=== PATIENT | male | born 1945 | race Caucasian/White ===

== ENCOUNTER 2018-01-01 13:59 | Emergency (ER) | payer MEDICARE, BC ==
[~2018-01-01] VITALS: Ht 170.2 cm; Wt 77.1 kg
[~2018-01-01 13:59] MED LIST: AEROSPAN8.9 GM; ALBUTEROL2.5 MG/31 INH; ASA81BEC PO; CLONAZEPAM 0.50.5 M1 PO; CLONAZEPAM 1 MG1 M1; CLONAZEPAM 1 MG1 M1 PO; CODEINE 10 MG-473 ML PO; COMBIVENT INH; COREG6.25 MG PO; COZAAR 50 MG TA50 M2 PO; FLONASE 0.05%50 MCG NASAL; HYDROCODONE-AP1 EAC6 PO; KLONOPIN; LASIX 40 MG TAB40 M2 PO; LEVAQUIN 750 M750 MG PO; NASALIDE; PAMELOR25 MG PO; PERFOROMIS20 MCG/2 M INH; PREDNISONE 10 M10 MG PO; PREDNISONE 20 M20 MG PO; PROVENTIL HFA6.7 G1 INH; PULMICORT FLE180 MCG; PULMICORT0.25 MG/3 INH; VIAGRA
[2018-01-01 14:26] LABS: ABSOLUTE BASOPHILS 0.1 thou/uL (0.0-0.2); ABSOLUTE EOSINOPHILS 0.5 thou/uL (0.0-0.7); ABSOLUTE LYMPHOCYTES 1.1 thou/uL (0.8-5.3); ABSOLUTE NEUTROPHILS 5.5 thou/uL (1.6-8.1); BASOPHILS 0.9 %; EOSINOPHILS 6.4 %; HEMATOCRIT 44.8 % (42.0-52.0); HEMOGLOBIN 14.7 gm/dL (14.0-18.0); LYMPHOCYTES 13.3 %; MCH 29.6 pg (26.0-34.0); MCHC 32.8 g/dL (28.0-37.0); MCV 90.2 fL (80.0-100.0); MONOCYTES 11.9 %; MPV 9.4 fl. (7.2-11.1); NUCLEATED RBCS 0 /100WBC; PLATELET COUNT* 201 thou/uL (150-400); POLYS 67.5 %; RBC 4.97 mil/uL (4.50-6.00); RDW-CV 15.2 % (10.5-14.5); WBC 8.2 thou/uL (4.0-11.0)
[2018-01-01 14:33] LABS: ANION GAP 7 mmol/L (7-16); BUN 18 mg/dL (7-18); CALCIUM 8.7 mg/dL (8.5-10.1); CHLORIDE 105 mmol/L (98-107); CO2 29 mmol/L (21-32); CREATININE 1.5 mg/dL (0.6-1.3); GLUCOSE 123 mg/dL (70-99); POTASSIUM 3.9 mmol/L (3.5-5.1); SODIUM 141 mmol/L (136-145)
[2018-01-01 14:35] LABS: APTT 23.4 Seconds (25.0-31.3)
[2018-01-01 14:44] LABS: ALBUMIN 3.4 g/dL (3.4-5.0); ALKALINE PHOSPHATASE 110 U/L (46-116); NT-PRO BRAIN NAT PEPTIDE 65 pg/mL (<300); SGOT 17 U/L (15-37); SGPT 14 U/L (30-65); TOTAL BILIRUBIN 0.3 mg/dL (<0.1-1.0); TOTAL PROTEIN 7.1 g/dL (6.4-8.2); TROPONIN-I LEVEL <0.06 ng/mL (<0.06)
[2018-01-01 14:54] LABS: URINE BILIRUBIN NEGATIVE (Negative); URINE BLOOD NEGATIVE (Negative); URINE CLARITY SL CLOUDY; URINE COLOR YELLOW; URINE GLUCOSE-RANDOM NEGATIVE (Negative); URINE KETONES NEGATIVE (Negative); URINE LEUKOCYTES-REFLEX NEGATIVE (Negative); URINE NITRITE-REFLEX NEGATIVE (Negative); URINE PROTEIN TRACE (Negative); URINE SPECIFIC GRAVITY 1.025 (1.005-1.030); URINE UROBILINOGEN 0.2 E.U./dl (0.2-1.0)
[2018-01-01 15:10] LABS: HYALINE CASTS 4-10 Moderate /LPF (None Seen)
[2018-01-01 15:11] LABS: CALCIUM OXALATE 0-3 Few /LPF (None Seen); MUCUS 4-6 Moderate strn/LPF (None Seen); SQUAMOUS >10 Many /LPF (0-3)
[2018-01-01 15:12] LABS: BACTERIA-REFLEX >30 Many /HPF (None Seen); URINE RBC 0-2 Rare /HPF (0-2); URINE WBC-REFLEX 0-5 Rare /HPF (0-5)
[2018-01-01 15:13] LABS: CRYSTALS None Seen /LPF (None Seen)
[2018-01-01 15:30] VITALS: BP 132/63
--- NOTE | 2018-01-02 10:59 | EKG ---
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: Ambrocio GREENFIELD : 1945 Requested By: Mateo Davidson Order Number: [id number] MD: Yann Galindo Measurements Intervals [place] Rate: 79 P: 85 [place]: 158 QRS: 54 QRSD: 121 T: 62 QT: 396 QTc: 455 Interpretive Statements Sinus rhythm Nonspecific intraventricular conduction delay Compared to ECG 05/02/2017 22:27:36 Sinus tachycardia no longer present Electronically Signed On 01-02-2018 10:59:10 DAT INSTRUCTOR by Yann Galindo [email or web address] <ELECTRONICALLY SIGNED> By: Yann Galindo MD, [facility] 01/02/18 1059 1404 1404 Yann Galindo MD, FACC /EPI
== END 2018-01-01 15:53 | disposition home or self-care (01) ==
LOC: M.ERS 13:59
PROVIDERS: Family Medicine
DX: S40.012A Contusion of left shoulder, initial encounter (principal); S80.02XA Contusion of left knee, initial encounter; S50.02XA Contusion of left elbow, initial encounter; J44.9 Chronic obstructive pulmonary disease, unspecified; I50.9 Heart failure, unspecified; Z85.46 Personal history of malignant neoplasm of prostate; Z88.1 Allergy status to other antibiotic agents; Z88.0 Allergy status to penicillin; Z88.8 Allergy status to other drugs, medicaments and biological substances; W19.XXXA Unspecified fall, initial encounter; Y93.89 Activity, other specified; Y92.89 Other specified places as the place of occurrence of the external cause; Y99.8 Other external cause status

== ENCOUNTER 2018-03-29 09:18 | Inpatient (IN) | payer MEDICARE, BC ==
[~2018-03-29] VITALS: Ht 172.7 cm; Wt 81.2 kg
[2018-03-29] VITALS (7 sets, daily range): BP systolic 91–116; BP diastolic 39–50
[2018-03-29] MEDS ORDERED: UNICOMPLEX M TA1 TA1 PO (09:33)
[2018-03-29 10:00] LABS: ABSOLUTE BASOPHILS 0.1 thou/uL (0.0-0.2); ABSOLUTE EOSINOPHILS 0.4 thou/uL (0.0-0.7); ABSOLUTE LYMPHOCYTES 1.6 thou/uL (0.8-5.3); ABSOLUTE MONOCYTES 0.9 thou/uL (0.0-1.2); ABSOLUTE NEUTROPHILS 5.4 thou/uL (1.6-8.1); BASOPHILS 0.8 %; EOSINOPHILS 5.2 %; HEMATOCRIT 43.3 % (42.0-52.0); HEMOGLOBIN 14.4 gm/dL (14.0-18.0); LYMPHOCYTES 18.7 %; MCH 29.4 pg (26.0-34.0); MCHC 33.4 g/dL (28.0-37.0); MCV 87.9 fL (80.0-100.0); MONOCYTES 10.9 %; MPV 9.5 fl. (7.2-11.1); NUCLEATED RBCS 0 /100WBC; PLATELET COUNT* 229 thou/uL (150-400); POLYS 64.4 %; RBC 4.92 mil/uL (4.50-6.00); RDW-CV 14.1 % (10.5-14.5); WBC 8.4 thou/uL (4.0-11.0)
[2018-03-29 10:08] LABS: CALCIUM 9.1 mg/dL (8.5-10.1); CREATININE 1.5 mg/dL (0.6-1.3); POTASSIUM 3.9 mmol/L (3.5-5.1)
--- NOTE | 2018-03-29 11:24 | EKG ---
[place] [address] ELECTROCARDIOGRAM REPORT Name: SHAUNA HIGGINBOTHAM Room: [facility]#: [id number] Admission: 03/29/18 Attend Phys: Zion Camargo Discharge: Date of : 41 Report #: [id number] THIS REPORT FOR: //name// [facility] Test Date: 2018-03-29 Test Time: 09:54:38 Pat Name: SHAUNA HIGGINBOTHAM Department: Room: Gender: M Set Illustrator: : 1945 Requested By: Jim Kimball Order Number: [id number] Reading MD: Yann Galindo Measurements Intervals [place] Rate: 67 P: 79 [place]: 165 QRS: 56 QRSD: 86 T: 78 QT: 417 QTc: 441 Interpretive Statements Sinus rhythm Compared to ECG 01/01/2018 14:04:54 no change Electronically Signed On 03-29-2018 11:24:12 CDT by Yann Galindo [email or web address] <ELECTRONICALLY SIGNED> By: Yann Galindo MD, [facility] 03/29/18 1124 0954 0954 Yann Galindo MD, FACC /EPI
--- NOTE | 2018-03-29 19:14 | NUR ---
1630 PT ADMITTED VIA BED FROM PACU POST CAROTID ENDARECTOMY. ICE REMANS IN USE TO RIGHT NECK. DURABOND INTACT TO RIGHT NECK WITH MODERATE EDEMA NOTED. ART LINE ZEROED.PT DENIES ANY COMPLANTS OF PAIN. NEOSENEPHERINE GTT REMINS IN USE AT 20 MCG PER HOUR. PT REMAINS BRADICARDIC IN THE UPPER 40'S, PT ASYMPTOMATIC. PT TOLERATING PO FLUIDS. IN ROOM. SHIFT REPORT GIVEN.
--- NOTE | 2018-03-29 20:43 | NUR ---
RECIEVED REPORT AND ASSUMED CARE OF PT AT 1930. DR DON CALLED DUE TO ANCEF ALLERGY. RECIEVED ORDER TO GIVE VANCOMYCIN 12 HOURS FROM LAST DOSE. HOME MEDS AND POST OP MANAGEMENT DISCUSSED WITH PT AND . HS MEDS GIVEN PER ORDERS. CALL LIGHT IN REACH, PT DEMONSTRATES PROPER USE.
[2018-03-30] VITALS (13 sets, daily range): BP systolic 85–122; BP diastolic 41–57
--- NOTE | 2018-03-30 03:17 | NUR ---
ARTERIAL LINE DISCONTINUED AT 0245. PRESSURE HELD UNTIL 0310, HEMOSTASIS ACHIEVED.
--- NOTE | 2018-03-30 05:17 | NUR ---
LEVOPHED OFF SINCE 0100. PT'S MAP > 60, HEART RATE WITHIN NORMAL LIMITS. PT'S INCISION SITE WELL APPROXIMATED, NO BLEEDING OR SWELLING NOTED. NO ACUTE CHANGES DURING SHIFT, WILL CONTINUE TO MONITOR.
--- NOTE | 2018-03-30 09:06 | NUR ---
5950 ASSUMED CARE OF PATIENT. PLEASE SEE DOCUMENTED ASSESSMENT. PT IS OFF OF NEOSYNEPHRINE DRIP. GOAL IS FOR DISCHARGE HOME TODAY. DR CALDERON SAW PATIENT.
[2018-03-30] MEDS ORDERED: HYDROCODONE-AP1 EAC6 PO (10:22)
--- NOTE | 2018-03-30 11:45 | NUR ---
1130 IV'S DISCONTINUED AND DISCHARGE EDUCATION COMPLETED.
--- NOTE | 2018-04-02 10:18 | OP ---
[address] [address] OPERATIVE REPORT Name: SHAUNA HIGGINBOTHAM Room: [address] M.R.#: [id number] Admission: 03/29/18 Attend Phys: Jordan Aj MD Discharge: 03/30/18 Date of : 41 Report #: [id number] THIS REPORT FOR: //name// CC: Baldo Kimball DATE OF SERVICE: 03/29/2018 PREOPERATIVE DIAGNOSIS: Right carotid stenosis. POSTOPERATIVE DIAGNOSIS: Right carotid stenosis. SURGEON: Jim Kimball DO FOOD SERVICE DRIVER: None. PROCEDURES: 1. Right carotid endarterectomy, bovine pericardial patch angioplasty. 2. Intraoperative arterial duplex on completion. ANESTHESIA: General endotracheal anesthesia. ESTIMATED BLOOD LOSS: 100 mL SPECIMEN: Plaque. COMPLICATIONS: None. CONDITION: Stable. DISPOSITION: ICU. INDICATIONS FOR THE PROCEDURE AND CONSENT: The patient is a 72-year-old male who presented with asymptomatic, greater than 70% stenosis of the right internal carotid artery. Risks and benefits of right carotid endarterectomy with bovine pericardial patch angioplasty were discussed including infection, bleeding, nerve injury, stroke, heart attack and . The patient wished to proceed, was consented and scheduled. PROCEDURE IN DETAIL: After timeout was performed, the patient was placed in supine position with sterile prep and drape of the anterior neck and chest wall. Lidocaine was instilled in the anterior sternocleidomastoid and the planned incision site. A #15 blade scalpel was used to make a semi-transverse incision anterior to the sternocleidomastoid. Dissection was carried down using Bovie electrocautery and sharply with Metzenbaum scissors. The internal jugular vein was identified and the facial vein identified. The facial [place] [address] OPERATIVE REPORT Name: SHAUNA HIGGINBOTHAM Room: [address] IN ..#: [id number] Admission: 03/29/18 Attend Phys: Jordan Aj MD Discharge: 03/30/18 Date of : 41 Report #: [id number] between 2-0 silk sutures. A lower or dominant venous branch was also ligated between 2-0 silk sutures and divided. The common carotid artery was then exposed and controlled proximal to the Rumel tourniquet. The internal and external carotid arteries were then controlled with Silastic vessel loops including the ascending pharyngeal vessel, which was also clearly identified and noted to branch separately at the bifurcation. The patient was systemically heparinized with 6000 units of heparin and allowed to circulate for 3 minutes. I then clamped the internal carotid artery, common and external carotid artery in sequence and #11 blade and Cazares scissors were then used to make a longitudinal arteriotomy. A #12 shunt was then advanced in the internal carotid artery without difficulty and was noted to backbleed well. The proximal portion of the shunt was then secured within the common carotid artery and blood flow restored to the brain. A plaque elevator was then used to loosen the intima and was divided with Cazares scissors proximally and the endarterectomy was performed and tapered modestly well. There was an area of intimal irregularity at the distal end point anteriorly. This was cleaned meticulously with forceps. There was one area that was still not satisfied with and this was tacked with 7-0 Prolene in 2 places. The arteriotomy was already fairly high and I did not feel that additional arteriotomy would benefit this area and the tacking was the appropriate choice. I then meticulously cleaned the endarterectomized portion with forceps and was satisfied. Once this was completed, I then applied the bovine pericardial patch with 6-0 Prolene in a circumferential fashion. Prior to complete closure, the shunt was removed and clamps reapplied. The endarterectomized portion was copiously irrigated with heparinized saline. The external was allowed to backbleed and then reirrigated. The internal was then also allowed to backbleed one or two cardiac cycles and reirrigated after clamping. The patch was then completed and blood flow restored through the external carotid artery first and then up the internal carotid artery. Patch was noted to be hemostatic. I then performed intraoperative arterial duplex that demonstrated appropriate waveforms with satisfactory velocities and B-mode imaging demonstrated no intimal flaps or anatomic concerns, please see saved images. I then copiously irrigated the wound with antibiotic saline. The patient was reversed with 40 units of protamine. Wound was closed in layers using 2-0 Vicryl, 3-0 Vicryl and 4-0 Monocryl suture and Dermabond dressing was applied. The patient tolerated the procedure well. Lap, needle and instrument counts correct. <ELECTRONICALLY SIGNED> By: Jim Kimball DO 04/02/18 1018 40 01Jim Kimball DO /nt
== END 2018-03-30 11:30 | disposition home or self-care (01) | DRG 38 ==
LOC: M.SUR 09:18 → M.ICU 16:57
PROVIDERS: Surgery; ADMIT Internal Medicine
DX: I65.21 Occlusion and stenosis of right carotid artery (principal); J98.11 Atelectasis; I95.9 Hypotension, unspecified; I12.9 Hypertensive chronic kidney disease with stage 1 through stage 4 chronic kidney disease, or unspecified chronic kidney disease; N18.3 Chronic kidney disease, stage 3 (moderate); R09.02 Hypoxemia; J44.9 Chronic obstructive pulmonary disease, unspecified; Z96.1 Presence of intraocular lens; Z88.8 Allergy status to other drugs, medicaments and biological substances; Z88.1 Allergy status to other antibiotic agents; Z88.0 Allergy status to penicillin; Z79.899 Other long term (current) drug therapy; Z79.82 Long term (current) use of aspirin; Z90.79 Acquired absence of other genital organ(s)

== ENCOUNTER → 2018-04-27 | Outpatient (CLI) | payer MEDICARE, BC ==
[~2018-04-27] MED LIST changes: +UNICOMPLEX M TA1 TA1 PO
--- NOTE | 2018-04-27 15:41 | CARDNUC ---
[place] [address] CARDIAC NUCLEAR IMAGING REPORT Name: SHAUNA HIGGINBOTHAM Room: [facility]#: [id number] Admission: 04/27/18 Attend Phys: David Elizondo, Discharge: Date of : 41 Date of Service: 04/27/18 1541 Report #: [id number] THIS REPORT FOR: //name// APPROVED REPORT Study performed: 04/27/2018 07:15:00 Indication: Chest pain, Dyspnea Patient Location: Out-Patient Stress Tech: Alicia Camara Stress Nurse: Leena Ray RN Ht: 5 ft 7 in Wt: 174 lbs BSA: 1.91 m2 BMI: 27.24 Medical History Medical History: hypertension, carotid endarectomy Medications: aspirin, carvedilol Allergies: neosporin, cepjalosporins, penicillin Cardiac Risk Factors: age, hypertension, past tobacco Previous Cardiac Procedures: none Exercise History: Sedentary Meds Held (24 hrs): carvedilol Resting Data Rest SPECT myocardial perfusion imaging was performed in supine position 30 minutes following the intravenous injection of 12.0 mCi of Tc-99m Sestamibi. Time of rest injection: 0815 The images were gated to evaluate regional wall motion and calculate left ventricular ejection fraction. Administration Route: IV Administration Site: Right Hand Pharmacologic Stress Pharmacologic stress test was performed by injecting Regadenoson 0.4 mg IV push over 10-15 seconds immediately followed by the intravenous injection of 36.0 mCi of Tc-99m Sestamibi. Time of stress injection: 1020 Administration Route: IV Administration Site: Right Hand Heart Rate at time of stress injection: 90 bpm. Gated Stress SPECT was performed 40 minutes after stress injection. The images were gated to evaluate regional [place] [address] CARDIAC NUCLEAR IMAGING REPORT Name: SHAUNA HIGGINBOTHAM Room: [facility]#: [id number] Admission: 04/27/18 Attend Phys: David Elizondo, Discharge: Date of : 41 Date of Service: 04/27/18 1541 Report #: [id number] left ventricular ejection fraction. Prone imaging was performed. Stress Test Details Stress Test: Pharmacologic stress testing performed using 0.4 mg of regadenoson per 5 mL given IV over 10 seconds. Reason for pharmacologic stress test: physical limitation. HR Resting HR: 79 bpm Max Heart Rate (APMHR): 146 bpm Max HR Achieved: 90 bpm Target HR (85% APMHR): 124 bpm % of APMHR: 61 Recovery HR: 92 bpm BP Resting BP: 154/81 mmHg Max BP: 108/68 mmHg ECG Resting ECG: Sinus Rhythm, normal EKG Stress ECG: Sinus Rhythm, normal EKG ST Change: None Arrhythmia: None Recovery ECG: Sinus Rhythm, normal EKG Recovery ST Change: None Recovery Arrhythmia: None Clinical Reason for Termination: Completed protocol Exercise duration: 0 min sec Exercise capacity: 1 METs The patient had no significant symptoms with Lexiscan infusion. Stress ECG Conclusion The baseline 12-lead electrocardiogram showed sinus rhythm with no significant Mr. T wave abnormalities. EKGs during and post Lexiscan infusion showed sinus rhythm with no significant Mr. T wave changes compared baseline. There were no stress-induced arrhythmias. Study Quality Study: Fair Artifact: Moderate Diaphragmatic artifact Study Data At rest, the left ventricular ejection fraction was 60%.. [place] [address] CARDIAC NUCLEAR IMAGING REPORT Name: SHAUNA HIGGINBOTHAM Room: [facility]#: [id number] Admission: 04/27/18 Attend Phys: David Elizondo, Discharge: Date of : 41 Date of Service: 04/27/18 1541 Report #: [id number] Post stress, the left ventricular ejection was 62%.. TID = 0.92. Perfusion Supine images both at rest and post stress show a moderate region of photopenia involving the basal mid inferior and inferoseptal wall that resolves with prone imaging suggesting diaphragmatic attenuation artifact. No reversible defects were identified. Wall Motion Gated studies show akinesis of the basal to mid inferoseptal wall with preserved left ventricular systolic function. There is diaphragmatic artifact that may affect the gated images. Recommend echocardiographic verification. Nuclear Conclusion ECG Findings: negative for ischemia Clinical Findings: negative for ischemia Nuclear Findings: negative for ischemia Exercise Capacity: not assessed Left Ventricular Function: preserved Risk Study: low Myocardial perfusion images show no defect to suggest ischemia. There is a fixed defect of the basal to mid inferoseptal wall that resolves with post stress prone imaging suggesting diaphragmatic attenuation artifact. Gated images show wall motion abnormality in the region of the basal to mid inferoseptal wall. This is likely artifactual due to poor visualization of these areas. Recommend echocardiographic verification. <Conclusion> The baseline 12-lead electrocardiogram showed sinus rhythm with no significant Mr. T wave abnormalities. EKGs during and post Lexiscan infusion showed sinus rhythm with no significant Mr. T wave changes compared baseline. There were no stress-induced arrhythmias. <ELECTRONICALLY SIGNED> By: Best Tinajero MD, FACC 04/27/18 1541 1541 1541 Best Tinajero MD, FACC /INF
== END ==
LOC: M.NUC 04-14 08:15
DX: R07.9 Chest pain, unspecified (principal); R06.00 Dyspnea, unspecified; I12.9 Hypertensive chronic kidney disease with stage 1 through stage 4 chronic kidney disease, or unspecified chronic kidney disease; N18.9 Chronic kidney disease, unspecified; I42.8 Other cardiomyopathies; I50.22 Chronic systolic (congestive) heart failure

== ENCOUNTER → 2018-11-03 | Outpatient (CLI) | payer MEDICARE, BC ==
[2018-11-03 12:12] LABS: CHOLESTEROL 161 mg/dL (<200); HDL CHOLESTEROL 69 mg/dL (>40); LDL CHOLESTEROL 80 mg/dL (<100); SERUM ASSESSMENT Clear; TC:HDL 2.3 Ratio (Not establshd); TRIGLYCERIDE 63 mg/dL (<150); VLDL 13 mg/dL (<40)
== END ==
LOC: M.LAB 11:35
PROVIDERS: Internal Medicine Cardiovascular Disease
DX: E78.00 Pure hypercholesterolemia, unspecified (principal)

== ENCOUNTER → 2019-04-24 | Outpatient (CLI) | payer MEDICARE, BC ==
[2019-04-24 12:39] LABS: HEMATOCRIT 43.4 % (42.0-52.0); HEMOGLOBIN 14.3 gm/dL (14.0-18.0); MCH 29.7 pg (26.0-34.0); MCHC 32.9 g/dL (28.0-37.0); MCV 90.3 fL (80.0-100.0); MPV 9.3 fl. (7.2-11.1); RBC 4.81 mil/uL (4.50-6.00); RDW-CV 13.7 % (10.5-14.5)
[2019-04-24 12:56] LABS: ALBUMIN 3.5 g/dL (3.4-5.0); CALCIUM 9.5 mg/dL (8.5-10.1); CREATININE 1.4 mg/dL (0.6-1.3); POTASSIUM 4.5 mmol/L (3.5-5.1); TOTAL BILIRUBIN 0.4 mg/dL (<0.1-1.0); TOTAL PROTEIN 7.5 g/dL (6.4-8.2)
--- NOTE | 2019-04-24 14:11 | 2DMMODE ---
[place] [address] 2 D/M-MODE ECHOCARDIOGRAM Name: SHAUNA HIGGINBOTHAM Room: [facility]#: [id number] Admission: 04/24/19 Attend Phys: David Elizondo, Discharge: Date of : 41 Date of Service: 04/24/19 1411 Report #: [id number] THIS REPORT FOR: //name// APPROVED REPORT Study performed: 04/24/2019 12:54:36 EXAM: Comprehensive 2D, Doppler, and color-flow Echocardiogram Patient Location: Out-Patient Status: routine BSA: 1.91 HR: 70 bpm BP: 150/88 mmHg Rhythm: NSR Other Information Study Quality: Good Indications Congestive Heart Failure Dyspnea 2D Dimensions IVSd: 14.95 (7-11mm) LVOT Diam: 20.92 (18-24mm) LVDd: 47.85 mm PWd: 11.89 (7-11mm) Ascending Ao: 35.74 (22-36mm) LVDs: 30.41 (25-40mm) Aortic Root: 35.69 mm Volumes Left Atrial Volume (Systole) LA ESV Index: 13.50 mL/m2 Aortic Valve AoV Peak Andi.: 0.85 m/s AO Peak Gr.: 2.90 mmHg LVOT Max P.14 mmHg AO Mean Gr.: 1.61 mmHg LVOT Mean P.38 mmHg LVOT Max V: 0.89 m/s AO V2 VTI: 17.33 cm LVOT Mean V: 0.53 m/s THOMAS (VTI): 3.48 cm2 LVOT V1 VTI: 17.54 cm AI Dillingham: 1.83 m/s2 AI PHT: 491.90 [place] [address] 2 D/M-MODE ECHOCARDIOGRAM Name: SHAUNA HIGGINBOTHAM Room: [facility]#: [id number] Admission: 04/24/19 Attend Phys: David Elizondo, Discharge: Date of : 41 Date of Service: 04/24/19 1411 Report #: [id number] E/A Ratio: 0.55 MV Decel. Time: 335.04 ms MV E Max Andi.: 0.47 m/s MV PHT: 97.16 ms MVA (PHT): 2.26 cm2 TDI E/Lateral E': 6.71 E/Medial E': 7.83 Medial E' Andi.: 0.06 m/s Lateral E' Andi.: 0.07 m/s Pulmonary Valve PV Peak Andi.: 0.63 m/s PV Peak Gr.: 1.60 mmHg Left Ventricle The left ventricle is normal size. There is global hypokinesis of the left ventricle. Mild concentric left ventricular hypertrophy. Left ventricular systolic function is normal. The left ventricular ejection fraction is within the normal range. LVEF is 45-50%. Grade I - abnormal relaxation pattern. Right Ventricle The right ventricle is normal size. The right ventricular systolic function is normal. Atria The left atrium size is normal. The right atrium size is normal. Aortic Valve The aortic valve is normal in structure. Trace to mild aortic regurgitation. There is no aortic valvular stenosis. Mitral Valve The mitral valve is normal in structure. There is no mitral valve regurgitation noted. No evidence of mitral valve stenosis. Tricuspid Valve The tricuspid valve is normal in structure. There is no tricuspid valve regurgitation noted. Pulmonic Valve The pulmonary valve is normal in structure. There is no pulmonic valvular regurgitation[place] [address] 2 D/M-MODE ECHOCARDIOGRAM Name: SHAUNA HIGGINBOTHAM Room: [facility]#: [id number] Admission: 04/24/19 Attend Phys: David Elizondo, Discharge: Date of : 41 Date of Service: 04/24/19 1411 Report #: [id number] The aortic root is normal in size. IVC is normal in size and collapses >50% with inspiration. Pericardium There is no pericardial effusion. <Conclusion> LVEF is 45-50%. There is global hypokinesis of the left ventricle. Grade I - abnormal relaxation pattern. There is no aortic valvular stenosis. Trace to mild aortic regurgitation. No evidence of mitral valve stenosis. There is no mitral valve regurgitation noted. <ELECTRONICALLY SIGNED> By: David Elizondo MD, [facility] 04/24/19 141 141 141 David Elizondo MD, FACC /INF
== END ==
LOC: M.CRD 12:17
PROVIDERS: Internal Medicine Cardiovascular Disease
DX: I35.1 Nonrheumatic aortic (valve) insufficiency (principal); I50.20 Unspecified systolic (congestive) heart failure; I51.7 Cardiomegaly; R53.83 Other fatigue

== ENCOUNTER 2019-07-16 14:43 | Inpatient (IN) | payer MEDICARE, BC ==
[~2019-07-16] VITALS: Ht 167.6 cm; Wt 79.8 kg
[2019-07-16 14:46] VITALS: BP 140/72
[2019-07-16 15:07] LABS: ABSOLUTE BASOPHILS 0.1 thou/uL (0.0-0.2); ABSOLUTE EOSINOPHILS 0.3 thou/uL (0.0-0.7); ABSOLUTE MONOCYTES 0.8 thou/uL (0.0-1.2); ABSOLUTE NEUTROPHILS 8.7 thou/uL (1.6-8.1); BASOPHILS 0.9 %; EOSINOPHILS 2.6 %; HEMATOCRIT 45.3 % (42.0-52.0); LYMPHOCYTES 9.3 %; MCH 30.2 pg (26.0-34.0); MCV 91.3 fL (80.0-100.0); MONOCYTES 7.6 %; MPV 9.1 fl. (7.2-11.1); NUCLEATED RBCS 0 /100WBC; PLATELET COUNT* 258 thou/uL (150-400); POLYS 79.6 %; RBC 4.96 mil/uL (4.50-6.00); RDW-CV 14.1 % (10.5-14.5); WBC 10.9 thou/uL (4.0-11.0)
[2019-07-16 15:12] LABS: ANION GAP 5 mmol/L (7-16); BUN 24 mg/dL (7-18); CALCIUM 8.9 mg/dL (8.5-10.1); CHLORIDE 101 mmol/L (98-107); CO2 32 mmol/L (21-32); CREATININE 1.5 mg/dL (0.6-1.3); GLUCOSE 114 mg/dL (70-99); POTASSIUM 4.1 mmol/L (3.5-5.1); SODIUM 138 mmol/L (136-145)
[2019-07-16 15:24] LABS: ALBUMIN 3.5 g/dL (3.4-5.0); ALKALINE PHOSPHATASE 109 U/L (46-116); SGOT 13 U/L (15-37); SGPT 14 U/L (30-65); TOTAL BILIRUBIN 0.5 mg/dL (<0.1-1.0); TOTAL PROTEIN 7.5 g/dL (6.4-8.2); TROPONIN-I LEVEL <0.06 ng/mL (<0.06)
[2019-07-16 17:03] LABS: BE 2.6 mmol/L (-2 to +3); PCO2 46.2 mmHg (35.0-45.0); pH 7.401 (7.340-7.450)
[2019-07-16 17:09] LABS: PO2 145.3 mmHg (75.0-100.0)
[2019-07-16 17:25] VITALS: BP 137/78
[2019-07-16 18:00] VITALS: BP 164/69
--- NOTE | 2019-07-16 18:47 | NUR ---
RECEIVED REPORT FROM ER AT 1800. PT AOX4, UP SBA, O2 SAT 90'S 4L NC. TELE IN PLACED, TRACING SR ON MONITOR. PT DENIES PAIN. PT SOA WITH ACTIVITY. LUNG SOUND COARSE/WHEEZE. PT HAS BREATHING TREATMENT.PT HAS EXTERNAL URINARY CATHETER. FOR I&O. PT ON 2G SODIUM DIET. LAST BM 07/15/19. ADMISSION ASSESSMENT DONE. VSS, CALL LIGHT WITHIN REACH, HOURLY ROUNDING, WILL CONTINUE TO MONITOR.
[2019-07-16 20:00] VITALS: BP 160/80
[2019-07-17] VITALS: BP 120/69
[2019-07-17 04:00] VITALS: BP 135/69
[2019-07-17 05:22] LABS: HEMATOCRIT 39.7 % (42.0-52.0); HEMOGLOBIN 13.2 gm/dL (14.0-18.0); MCH 30.2 pg (26.0-34.0); MCHC 33.3 g/dL (28.0-37.0); MCV 90.7 fL (80.0-100.0); MPV 9.3 fl. (7.2-11.1); NUCLEATED RBCS 0 /100WBC; PLATELET COUNT* 225 thou/uL (150-400); RBC 4.38 mil/uL (4.50-6.00); RDW-CV 13.7 % (10.5-14.5); WBC 7.2 thou/uL (4.0-11.0)
--- NOTE | 2019-07-17 05:30 | NUR ---
PATIENT PARTIALLY PROGRESSING TOWARDS GOALS: PATIENT REMAINS SOB ON EXERTION AND DESATS WITH ACTIVITY. O2 NOTED TO BE IN THE 80'S AFTER AMBULATING TO BATHROOM. WITH REST, O2 SATURATION IMPROVED TO >92% WITHIN 5 MINUTES ON 3L O2 NC. PATIENT ALSO STATES THIS MORNING THAT AT HOME HE HAD BEEN FALLING FREQUENTLY DUE TO "EQUILIBRIUM BEING OFF". ENCOURAGED PATIENT TO CALL FOR ASSISTANCE WHEN AMBULATING AND BED ALARM TURNED ON. CALL LIGHT WITHIN REACH
[2019-07-17 05:57] LABS: ANION GAP 6 mmol/L (7-16); BUN 25 mg/dL (7-18); CALCIUM 9.1 mg/dL (8.5-10.1); CHLORIDE 101 mmol/L (98-107); CHOLESTEROL 141 mg/dL (<200); CO2 28 mmol/L (21-32); CREATININE 1.5 mg/dL (0.6-1.3); GLUCOSE 139 mg/dL (70-99); HDL CHOLESTEROL 55 mg/dL (>40); LDL CHOLESTEROL 78 mg/dL (<100); MAGNESIUM 1.8 mg/dL (1.8-2.4); POTASSIUM 4.5 mmol/L (3.5-5.1); SODIUM 135 mmol/L (136-145); TC:HDL 2.6 Ratio (Not establshd); TRIGLYCERIDE 40 mg/dL (<150); VLDL 8 mg/dL (<40)
[2019-07-17 06:03] LABS: ABSOLUTE LYMPHOCYTES 0.4 thou/uL (0.8-5.3); ABSOLUTE MONOCYTES 0.1 thou/uL (0.0-1.2); ABSOLUTE NEUTROPHILS 6.7 thou/uL (1.6-8.1); PLATELET ESTIMATE ADEQUATE; SERUM ASSESSMENT Clear
[2019-07-17 06:04] LABS: ANISOCYTOSIS 1+; LARGE PLATELETS RARE; POIKILOCYTOSIS 1+
[2019-07-17 08:00] VITALS: BP 122/70
--- NOTE | 2019-07-17 10:50 | NUR ---
ASSUMED PT CARE AT 0800, AOX4, UP SBA, HX OF FALL. O2 SAT 90'S 3L NC. PT DENIES PAIN. SOA WITH ACTIVITY. PT ON BREATHING TREATMENT. LUNG SOUND COARSE/WHEEZE. VSS, AM ASSESSMENT CHARTED. MEDS GIVEN PER MAR. CALL LIGHT WITHIN REACH. WILL CONTINUE TO MONITOR.
--- NOTE | 2019-07-17 11:05 | EKG ---
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: : 1945 Requested By: Michel Gonzalez Order Number: [id number] MD: Yann Galindo Measurements Intervals [place] Rate: 108 P: 80 [place]: 172 QRS: 64 QRSD: 83 T: 76 QT: 326 QTc: 437 Interpretive Statements Sinus tachycardia Ventricular premature complex Compared to ECG 03/29/2018 09:54:38 Ventricular premature complex(es) now present Sinus rhythm no longer present Electronically Signed On 07-17-2019 11:05:26 CDT by Yann Galindo [email or web address] <ELECTRONICALLY SIGNED> By: Yann Galindo MD, [facility] 07/17/19 1105 1450 1450 Yann aGlindo MD, [facility] /EPI
--- NOTE | 2019-07-17 11:43 | EKG ---
[place] [address] ELECTROCARDIOGRAM REPORT Name: SHAUNA HIGGINBOTHAM Room: [address] ADM IN [facility].#: [id number] Admission: 07/16/19 Attend Phys: Irene Leslie MD Discharge: Date of : 41 Report #: [id number] THIS REPORT FOR: //name// [facility] Test Date: 2019-07-17 Test Time: 09:58:56 Pat Name: SHAUNA HIGGINBOTHAM Department: Room: [facility] Gender: M News Producer: : 1945 Requested By: Irene Leslie Order Number: [id number] Reading MD: Yann Galindo Measurements Intervals [place] Rate: 74 P: 75 [place]: 163 QRS: 67 QRSD: 87 T: 79 QT: 394 QTc: 438 Interpretive Statements Sinus rhythm Electronically Signed On 07-17-2019 11:43:31 CDT by Yann Galindo [email or web address] <ELECTRONICALLY SIGNED> By: Yann Galindo MD, [facility] 07/17/19 1143 0958 0958 Yann Galindo MD, FACC /EPI
--- NOTE | 2019-07-17 12:30 | NUR ---
Pt is A&O. Resides at home with his . Independent. Pt wears home o2 through [facility], Pt stated that is PCP is working on getting him a POC. Hx of HH, does not recall the name of the agency. No hx of SNF. Supportive family. Goal is home at ne. No needs anticipated.
[2019-07-17 13:53] LABS: URINE BILIRUBIN NEGATIVE (Negative); URINE BLOOD NEGATIVE (Negative); URINE CLARITY CLEAR; URINE COLOR YELLOW; URINE GLUCOSE-RANDOM NEGATIVE (Negative); URINE KETONES NEGATIVE (Negative); URINE LEUKOCYTES-REFLEX NEGATIVE (Negative); URINE NITRITE-REFLEX NEGATIVE (Negative); URINE PROTEIN NEGATIVE (Negative); URINE SPECIFIC GRAVITY 1.025 (1.005-1.030); URINE UROBILINOGEN 0.2 E.U./dl (0.2-1.0)
[2019-07-17 14:08] LABS: AMP/METHAMP Negative (Negative); BARBITURATES Negative (Negative); BENZODIAZEPINES Negative (Negative); COCAINE Negative (Negative); METHADONE Negative (Negative); OPIATES POSITIVE (Negative); PCP Negative (Negative); THC Negative (Negative)
[2019-07-17 15:47] VITALS: BP 102/60
[2019-07-17 20:20] VITALS: BP 144/65
[2019-07-18] VITALS: BP 129/66
[2019-07-18 04:00] VITALS: BP 112/92
[2019-07-18 05:20] LABS: ABSOLUTE BASOPHILS 0.1 thou/uL (0.0-0.2); ABSOLUTE LYMPHOCYTES 0.8 thou/uL (0.8-5.3); ABSOLUTE MONOCYTES 0.9 thou/uL (0.0-1.2); ABSOLUTE NEUTROPHILS 15.5 thou/uL (1.6-8.1); BASOPHILS 0.5 %; HEMATOCRIT 38.8 % (42.0-52.0); HEMOGLOBIN 12.5 gm/dL (14.0-18.0); LYMPHOCYTES 4.3 %; MCH 29.1 pg (26.0-34.0); MCHC 32.3 g/dL (28.0-37.0); MCV 90.2 fL (80.0-100.0); MONOCYTES 5.4 %; MPV 9.1 fl. (7.2-11.1); NUCLEATED RBCS 0 /100WBC; PLATELET COUNT* 239 thou/uL (150-400); POLYS 89.8 %; RDW-CV 13.8 % (10.5-14.5); WBC 17.3 thou/uL (4.0-11.0)
[2019-07-18 05:36] LABS: CALCIUM 8.9 mg/dL (8.5-10.1); CREATININE 1.4 mg/dL (0.6-1.3); POTASSIUM 4.7 mmol/L (3.5-5.1)
--- NOTE | 2019-07-18 07:51 | NUR ---
PT CARE ASSUMED AT 1930. SAT MAINTAINED IN O2. PT SEEMED FORGETFUL THIS AM, GETTING OFF THE BED ALARM, WANTING TO URINATE BUT HAS EXTERNAL MALE CATHETER IN PLACE. CALL LIGHT WITHIN REACH AND BED IN LOW POSITION. HOURLY ROUNDING DONE FOR PT SAFETY.
[2019-07-18 08:00] VITALS: BP 144/76
[2019-07-18] MEDS ORDERED: PREDNISONE 20 M20 MG PO (10:05)
[2019-07-18] MEDS ORDERED: OMEPPI 40 MG-11 EACH PO (10:05)
[2019-07-18] MEDS ORDERED: LEVAQUIN 750 M750 MG PO (10:05)
[2019-07-18] MEDS ORDERED: MUCINEX600 MG PO (10:05)
--- NOTE | 2019-07-18 11:52 | NUR ---
ASSUMED CARE OF PATIENT THIS AM AT 0730. PATIENT IS ALERT AND ORIENTED X 4. HE DENIES PAIN. TELE SHOWS NSR. PATIENT'S O2 SATS ARE 99% ON 3 LITERS. O2 DECREASED TO [address] IN TO ROUND AND DISCHARGE ORDERS WERE WRITTEN. WILL DC TELE MONITOR.
[2019-07-18 12:04] VITALS: BP 107/64
[2019-07-18 12:27] VITALS: BP 107/64
--- NOTE | 2019-07-18 12:31 | NUR ---
Pt discharging to home today. HH orders written. Discussed with Pt and . has used [facility] in the past and wants them for Pt. Faxed referral to [facility].
[2019-07-18 13:45] VITALS: BP 107/64
== END 2019-07-18 16:00 | disposition home health service (06) | DRG 177 ==
LOC: M.ERS 14:43 → M.TBA-ER 16:26 → M.2W 16:26
PROVIDERS: Emergency Medicine Emergency Medical Services; ADMIT Family Medicine
DX: J15.6 Pneumonia due to other Gram-negative bacteria (principal); J96.21 Acute and chronic respiratory failure with hypoxia; J96.22 Acute and chronic respiratory failure with hypercapnia; J44.1 Chronic obstructive pulmonary disease with (acute) exacerbation; I12.9 Hypertensive chronic kidney disease with stage 1 through stage 4 chronic kidney disease, or unspecified chronic kidney disease; N18.3 Chronic kidney disease, stage 3 (moderate); J44.9 Chronic obstructive pulmonary disease, unspecified; Z96.1 Presence of intraocular lens; Z88.1 Allergy status to other antibiotic agents; Z88.0 Allergy status to penicillin; Z88.8 Allergy status to other drugs, medicaments and biological substances; Z87.891 Personal history of nicotine dependence; Z85.46 Personal history of malignant neoplasm of prostate; Z79.82 Long term (current) use of aspirin; Z79.899 Other long term (current) drug therapy

== ENCOUNTER 2019-09-30 18:52 | Emergency (ER) | payer MEDICARE, BC ==
[~2019-09-30] VITALS: Ht 172.7 cm; Wt 74.8 kg
[~2019-09-30 18:52] MED LIST changes: +MUCINEX600 MG PO; +OMEPPI 40 MG-11 EACH PO
[2019-09-30 19:39] LABS: ABSOLUTE EOSINOPHILS 0.4 thou/uL (0.0-0.7); ABSOLUTE LYMPHOCYTES 1.3 thou/uL (0.8-5.3); ABSOLUTE MONOCYTES 0.7 thou/uL (0.0-1.2); ABSOLUTE NEUTROPHILS 4.8 thou/uL (1.6-8.1); BASOPHILS 0.5 %; EOSINOPHILS 5.9 %; HEMATOCRIT 40.7 % (42.0-52.0); HEMOGLOBIN 13.4 gm/dL (14.0-18.0); LYMPHOCYTES 17.5 %; MCV 91.1 fL (80.0-100.0); MONOCYTES 9.9 %; MPV 9.2 fl. (7.2-11.1); NUCLEATED RBCS 0 /100WBC; PLATELET COUNT* 234 thou/uL (150-400); POLYS 66.2 %; RBC 4.47 mil/uL (4.50-6.00); RDW-CV 13.8 % (10.5-14.5); WBC 7.3 thou/uL (4.0-11.0)
[2019-09-30 19:45] LABS: CALCIUM 8.6 mg/dL (8.5-10.1); CREATININE 1.3 mg/dL (0.6-1.3); POTASSIUM 4.3 mmol/L (3.5-5.1)
[2019-09-30 19:47] LABS: PROTIME 10.6 Seconds (9.20-11.50)
[2019-09-30 19:50] LABS: ALBUMIN 3.1 g/dL (3.4-5.0); TOTAL BILIRUBIN 0.3 mg/dL (<0.1-1.0); TOTAL PROTEIN 6.5 g/dL (6.4-8.2)
[2019-09-30] MEDS ORDERED: HYDROCODON-ACE1 EAC8 PO (20:55)
[2019-09-30 21:33] VITALS: BP 160/70
== END 2019-09-30 22:18 | disposition home or self-care (01) ==
LOC: M.ERS 18:52
PROVIDERS: Emergency Medicine
DX: S42.215A Unspecified nondisplaced fracture of surgical neck of left humerus, initial encounter for closed fracture (principal); I12.9 Hypertensive chronic kidney disease with stage 1 through stage 4 chronic kidney disease, or unspecified chronic kidney disease; N18.3 Chronic kidney disease, stage 3 (moderate); J44.9 Chronic obstructive pulmonary disease, unspecified; Z98.890 Other specified postprocedural states; Z88.1 Allergy status to other antibiotic agents; Z88.0 Allergy status to penicillin; Z87.891 Personal history of nicotine dependence; W01.198A Fall on same level from slipping, tripping and stumbling with subsequent striking against other object, initial encounter; Y92.89 Other specified places as the place of occurrence of the external cause; Y93.89 Activity, other specified; Y99.8 Other external cause status

== ENCOUNTER 2019-11-02 10:09 | Inpatient (IN) | payer OTHER ==
[~2019-11-02] VITALS: Ht 172.7 cm; Wt 75.2 kg
[~2019-11-02 10:09] MED LIST changes: +HYDROCODON-ACE1 EAC8 PO; +NORCO 5-325 TA1 EAC2 PO
[2019-11-02 10:14] VITALS: BP 138/95
[2019-11-02 10:49] LABS: HEMATOCRIT 37.3 % (42.0-52.0); HEMOGLOBIN 12.3 gm/dL (14.0-18.0); MCH 29.9 pg (26.0-34.0); MCV 90.7 fL (80.0-100.0); MPV 9.5 fl. (7.2-11.1); NUCLEATED RBCS 0 /100WBC; PLATELET COUNT* 166 thou/uL (150-400); RBC 4.11 mil/uL (4.50-6.00); RDW-CV 14.2 % (10.5-14.5); WBC 6.8 thou/uL (4.0-11.0)
[2019-11-02 10:59] LABS: APTT 28.6 Seconds (25.0-31.3); CALCIUM 9.1 mg/dL (8.5-10.1); CREATININE 1.2 mg/dL (0.6-1.3); POTASSIUM 4.1 mmol/L (3.5-5.1); PROTIME 10.7 Seconds (9.20-11.50)
[2019-11-02 11:10] LABS: ALBUMIN 2.9 g/dL (3.4-5.0); TOTAL BILIRUBIN 0.3 mg/dL (<0.1-1.0); TOTAL PROTEIN 6.5 g/dL (6.4-8.2)
[2019-11-02 11:17] LABS: ABSOLUTE EOSINOPHILS 0.3 thou/uL (0.0-0.7); ABSOLUTE LYMPHOCYTES 0.7 thou/uL (0.8-5.3); ABSOLUTE MONOCYTES 0.1 thou/uL (0.0-1.2); ABSOLUTE NEUTROPHILS 5.7 thou/uL (1.6-8.1); ANISOCYTOSIS 1+; PLATELET ESTIMATE ADEQUATE
--- NOTE | 2019-11-02 13:35 | NUR ---
PT WAS IN CT, CT STARTED A SECOND IV, IV INFLITRATED WITH CT CONTRAST. CT APPLIED ICE TO SITE. DR. SWANSON NOTIFIED
--- NOTE | 2019-11-02 15:51 | NUR ---
ASSUMED CARE OF PATIENT AT 1500.
[2019-11-02 17:30] VITALS: BP 144/62
[2019-11-02 17:41] VITALS: BP 122/73
--- NOTE | 2019-11-02 19:56 | EKG ---
[place] [address] ELECTROCARDIOGRAM REPORT Name: SHAUNA HIGGINBOTHAM Room: [address] ADM IN [facility].#: [id number] Admission: 11/02/19 Attend Phys: Jordan Aj MD Discharge: Date of : 41 Report #: [id number] THIS REPORT FOR: //name// [facility] ED Test Date: 2019-11-02 Test Time: 10:20:01 Pat Name: SHAUNA HIGGINBOTHAM Department: Room: [facility] Gender: M Call Person: : 1945 Requested By: Mateo Davidson Order Number: [id number] MD: Best Tinajero Measurements Intervals [place] Rate: 89 P: 78 [place]: 161 QRS: 52 QRSD: 92 T: 74 QT: 357 QTc: 435 Interpretive Statements Sinus rhythm Compared to ECG 07/17/2019 09:58:56 No significant changes Electronically Signed On 11-02-2019 19:56:34 CRUSHER SUPERVISOR by Best Tinajero [email or web address] <ELECTRONICALLY SIGNED> By: Best Tinajero MD, [facility] 11/02/191955 1020 1020 Best Tinajero MD, FACC /EPI
[2019-11-02 20:00] VITALS: BP 149/68
[2019-11-02 23:55] VITALS: BP 104/62
[2019-11-03 04:00] VITALS: BP 118/90
[2019-11-03 05:12] LABS: ABSOLUTE LYMPHOCYTES 0.5 thou/uL (0.8-5.3); ABSOLUTE MONOCYTES 0.1 thou/uL (0.0-1.2); ABSOLUTE NEUTROPHILS 5.4 thou/uL (1.6-8.1); EOSINOPHILS 0.1 %; HEMATOCRIT 36.5 % (42.0-52.0); LYMPHOCYTES 7.7 %; MCH 29.7 pg (26.0-34.0); MCHC 32.8 g/dL (28.0-37.0); MCV 90.5 fL (80.0-100.0); MONOCYTES 1.6 %; MPV 9.3 fl. (7.2-11.1); NUCLEATED RBCS 0 /100WBC; PLATELET COUNT* 178 thou/uL (150-400); POLYS 90.6 %; RBC 4.03 mil/uL (4.50-6.00); RDW-CV 14.2 % (10.5-14.5)
[2019-11-03 05:33] LABS: ANION GAP 6 mmol/L (7-16); BUN 18 mg/dL (7-18); CALCIUM 8.9 mg/dL (8.5-10.1); CHLORIDE 104 mmol/L (98-107); CO2 31 mmol/L (21-32); CREATININE 1.3 mg/dL (0.6-1.3); GLUCOSE 151 mg/dL (70-99); POTASSIUM 4.5 mmol/L (3.5-5.1); SODIUM 141 mmol/L (136-145); TROPONIN-I LEVEL <0.06 ng/mL (<0.06)
--- NOTE | 2019-11-03 06:06 | NUR ---
ASSUMED CARE OF PT AFTER REPORT AT 1930. PT A&OX4. VSS. PHYSICAL ASSESSMENT COMPLETED AND CHARTED. PT ON O2 AT 3L NC. PT TRACING SR/ST/PVC ON TELE. PT UPSTANDBY. PT COMPLAINED OF LEFT ARM PAIN-MEDS GIVEN PER MAR. PT ABLE TO SLEEP WELL ON BED. CALL LIGHT WITHIN REACH.
[2019-11-03 08:30] VITALS: BP 121/66
[2019-11-03 12:07] VITALS: BP 120/57
--- NOTE | 2019-11-03 12:45 | NUR ---
I ASSUMED CARE OF THE PATIENT AT 0700. HE IS ALERT AND ORIENTED X4 AND IS US UP WITH ASSIST OF 1. IS AT THE BEDSIDE. BED IS IN THE LOW LOCKED POSITION AND CALL LIGHT IS IN REACH. PATIENT NEEDS ARE MET DURING HOURLY ROUNDING AND PAIN IS MANAGED WITH PRN MEDS. HE WAS DOWNGRADED TO MED SURG STATUS AND WAS MOVED TO [facility] AT 1215. NEW ORDERS WERE OBTAINED. REPORT CALLED TO EMELY.
--- NOTE | 2019-11-03 13:34 | NUR ---
PT TRANSFERED FROM [facility]. IV PATENT, SL. PT STABLE. ON 3LO2. SLING IN PLACE. PAIN CONTROLLED. DENIED N/V. TOLERATING FOOD. PT SETTLED IN ROOM. WILL CONTINUE TO MONITOR.
--- NOTE | 2019-11-03 17:31 | NUR ---
PT A&Ox4. VITALS STABLE. IV PATENT. UP STB. WORKED WITH OT AND GOT WASHED UP. IN ROOM. TOLERATING DIET. DENIED PAIN. DENIED N/V. ON 3LO2. CALL LIGHT WITHIN REACH. WILL CONTINUE TO MONITOR.
[2019-11-03 19:45] VITALS: BP 150/68
[2019-11-04 04:54] LABS: HEMATOCRIT 32.4 % (42.0-52.0); HEMOGLOBIN 10.8 gm/dL (14.0-18.0); MCH 29.9 pg (26.0-34.0); MCHC 33.2 g/dL (28.0-37.0); MCV 89.9 fL (80.0-100.0); MPV 9.4 fl. (7.2-11.1); NUCLEATED RBCS 0 /100WBC; PLATELET COUNT* 183 thou/uL (150-400); RDW-CV 14.2 % (10.5-14.5); WBC 14.6 thou/uL (4.0-11.0)
--- NOTE | 2019-11-04 05:13 | NUR ---
PT A&O X 4. ON 3L O2 BY NC. NO C/O PAIN. SLING, HICKMAN IN PLACE. TOLERATING BREATHING TREATMENT. HOURLY ROUNDINGS COMPLETED. WILL CONTINUE TO MONITOR.
[2019-11-04 05:43] LABS: CALCIUM 8.7 mg/dL (8.5-10.1); CREATININE 1.3 mg/dL (0.6-1.3); POTASSIUM 4.4 mmol/L (3.5-5.1)
[2019-11-04 06:55] LABS: ABSOLUTE LYMPHOCYTES 0.7 thou/uL (0.8-5.3); ABSOLUTE MONOCYTES 0.4 thou/uL (0.0-1.2); ABSOLUTE NEUTROPHILS 13.4 thou/uL (1.6-8.1); PLATELET ESTIMATE ADEQUATE
[2019-11-04 08:04] VITALS: BP 123/69
[2019-11-04 09:34] VITALS: BP 123/69
[2019-11-04] MEDS ORDERED: LEVAQUIN 500 M500 M3 PO (09:59)
--- NOTE | 2019-11-04 11:13 | NUR ---
PT DISCHARGED TO HOME BY WHEELCHAIR WITH NURSING STAFF AND AT 1112. IV OUT. PT STABLE UPON DISCHARGE. PAIN CONTROLLED. DENIED N/V. PERSONAL BELONGINGS AND PAPER SCRIPT/CARENOTES GIVEN TO PT. SLING IN PLACE.
== END 2019-11-04 11:12 | disposition home or self-care (01) | DRG 177 ==
LOC: M.ERS 10:09 → M.TBA-ER 11:08 → M.2W 16:19 → M.ORTHSURG 11-03 12:48
PROVIDERS: Family Medicine; ADMIT Internal Medicine
DX: J15.6 Pneumonia due to other Gram-negative bacteria (principal); J96.21 Acute and chronic respiratory failure with hypoxia; S42.202A Unspecified fracture of upper end of left humerus, initial encounter for closed fracture; J44.1 Chronic obstructive pulmonary disease with (acute) exacerbation; J98.11 Atelectasis; J44.0 Chronic obstructive pulmonary disease with (acute) lower respiratory infection; I12.9 Hypertensive chronic kidney disease with stage 1 through stage 4 chronic kidney disease, or unspecified chronic kidney disease; N18.3 Chronic kidney disease, stage 3 (moderate); Z79.899 Other long term (current) drug therapy; Z88.1 Allergy status to other antibiotic agents; Z88.0 Allergy status to penicillin; Z88.8 Allergy status to other drugs, medicaments and biological substances; Z87.891 Personal history of nicotine dependence; Z85.46 Personal history of malignant neoplasm of prostate; Z99.81 Dependence on supplemental oxygen; Z79.82 Long term (current) use of aspirin; X58.XXXA Exposure to other specified factors, initial encounter; Y93.89 Activity, other specified; Y92.89 Other specified places as the place of occurrence of the external cause; Y99.8 Other external cause status

== ENCOUNTER 2019-11-07 13:34 | Inpatient (IN) | payer MEDICARE, BC ==
[~2019-11-07] VITALS: Ht 172.7 cm; Wt 78.0 kg
[~2019-11-07 13:34] MED LIST changes: +LEVAQUIN 500 M500 M3 PO
[2019-11-07 13:39] VITALS: BP 188/92
[2019-11-07 15:41] LABS: HEMOGLOBIN 12.9 gm/dL (14.0-18.0); MCH 29.5 pg (26.0-34.0); MCHC 32.3 g/dL (28.0-37.0); MCV 91.2 fL (80.0-100.0); MPV 9.4 fl. (7.2-11.1); NUCLEATED RBCS 0 /100WBC; PLATELET COUNT* 220 thou/uL (150-400); RBC 4.38 mil/uL (4.50-6.00); RDW-CV 14.5 % (10.5-14.5); WBC 8.3 thou/uL (4.0-11.0)
[2019-11-07 15:57] LABS: CALCIUM 9.1 mg/dL (8.5-10.1); CREATININE 1.3 mg/dL (0.6-1.3); POTASSIUM 3.5 mmol/L (3.5-5.1)
[2019-11-07 16:08] LABS: ALBUMIN 3.1 g/dL (3.4-5.0); TOTAL BILIRUBIN 0.3 mg/dL (<0.1-1.0); TOTAL PROTEIN 6.6 g/dL (6.4-8.2)
[2019-11-07 16:40] LABS: ABSOLUTE EOSINOPHILS 1.2 thou/uL (0.0-0.7); ABSOLUTE LYMPHOCYTES 1.5 thou/uL (0.8-5.3); ABSOLUTE MONOCYTES 0.3 thou/uL (0.0-1.2); ABSOLUTE NEUTROPHILS 5.2 thou/uL (1.6-8.1); PLATELET ESTIMATE ADEQUATE
[2019-11-07 16:46] LABS: URINE BILIRUBIN NEGATIVE (Negative); URINE BLOOD NEGATIVE (Negative); URINE CLARITY CLOUDY; URINE COLOR YELLOW; URINE GLUCOSE-RANDOM NEGATIVE (Negative); URINE KETONES NEGATIVE (Negative); URINE PROTEIN NEGATIVE (Negative); URINE UROBILINOGEN 0.2 E.U./dl (0.2-1.0)
[2019-11-07 16:47] LABS: URINE LEUKOCYTES-REFLEX 3+ (Negative); URINE NITRITE-REFLEX POSITIVE (Negative)
[2019-11-07 16:50] LABS: BACTERIA-REFLEX >30 Many /HPF (None Seen); CASTS None Seen /LPF (None Seen); CRYSTALS None Seen /LPF (None Seen); SQUAMOUS 4-10 Moderate /LPF (0-3); URINE RBC 0-2 Rare /HPF (0-2); URINE WBC-REFLEX 6-15 Few /HPF (0-5); YEAST-REFLEX Present (None Seen)
[2019-11-07 18:10] VITALS: BP 136/68
[2019-11-07 20:00] VITALS: BP 145/80
[2019-11-08 09:20] VITALS: BP 153/46
--- NOTE | 2019-11-08 14:36 | EKG ---
[place] [address] ELECTROCARDIOGRAM REPORT Name: SHAUNA HIGGINBOTHAM Room: [address] ADM IN [facility].#: [id number] Admission: 11/07/19 Attend Phys: Asaf Sung Discharge: Date of : 41 Report #: [id number] THIS REPORT FOR: //name// [facility] ED Test Date: 2019-11-07 Test Time: 15:08:52 Pat Name: SHAUNA HIGGINBOTHAM Department: Room: [facility] Gender: M Payroll Officer: : 1945 Requested By: Anisha Lemos Order Number: [id number] MD: Yann Galindo Measurements Intervals [place] Rate: 75 P: 81 MA: 164 QRS: 58 QRSD: 87 T: 70 QT: 400 QTc: 447 Interpretive Statements Sinus rhythm Compared to ECG 11/02/2019 10:20:01 No significant changes Electronically Signed On 11-08-2019 14:36:32 LUNG PULLER by Yann Galindo [email or web address] <ELECTRONICALLY SIGNED> By: Yann Galindo MD, [facility] 11/08/19 1436 1508 1508 Yann Galindo MD, FACC /EPI
[2019-11-08 16:00] VITALS: BP 147/55
[2019-11-08 20:40] VITALS: BP 140/60
[2019-11-09 00:04] VITALS: BP 110/69
[2019-11-09 04:13] LABS: HEMATOCRIT 32.4 % (42.0-52.0); MCH 29.9 pg (26.0-34.0); MCV 90.7 fL (80.0-100.0); MPV 9.5 fl. (7.2-11.1); RBC 3.57 mil/uL (4.50-6.00); RDW-CV 14.4 % (10.5-14.5); WBC 7.8 thou/uL (4.0-11.0)
[2019-11-09 04:16] LABS: CALCIUM 8.4 mg/dL (8.5-10.1); CREATININE 1.3 mg/dL (0.6-1.3); MAGNESIUM 1.9 mg/dL (1.8-2.4); POTASSIUM 3.6 mmol/L (3.5-5.1)
[2019-11-09 04:26] LABS: HEMOGLOBIN 10.7 gm/dL (14.0-18.0)
--- NOTE | 2019-11-09 07:30 | CON ---
[address] [address] CONSULTATION Name: SHAUNA HIGGINBOTHAM Room: [address] IN [facility].#: [id number] Admission: 11/07/19 Attend Phys: Asaf Sung Discharge: Date of : 41 Report #: [id number] THIS REPORT FOR: //name// CC: Baldo Horner DATE OF SERVICE: 11/08/2019 INFECTIOUS DISEASE CONSULTATION ATTENDING PHYSICIAN: Dr. Horner. REASON FOR EVALUATION: Left upper extremity inflammatory eruption, most likely a component of cellulitis. HISTORY OF PRESENT ILLNESS: He is known to have a humerus fracture as well, does have underlying COPD, maintained on supplemental oxygen. Of note, he was just discharged from the hospital with respiratory tract infection/pneumonitis, presented to the Emergency Room with left hand swelling, increased pain associated with the distal aspect in particular as well as warmth and erythema. Of note, he had been on levofloxacin for upper respiratory tract infection. He is generally lucid. Denied any antecedent injury. Denies significant changes in overall pulmonary status, somewhat diminished appetite. No fevers. He is not aware of any chills or sweats as well. He is lucid. Empirically started on therapy with vancomycin and ciprofloxacin, the latter of which apparently led to itching. He is also on fluconazole. ALLERGIES: LISTED TO NEOSPORIN, CEPHALOSPORINS, PENICILLIN G. CURRENT MEDICATIONS: Include vancomycin, aspirin, clonazepam, nortriptyline, fluconazole, Cipro, arformoterol, guaifenesin, multivitamin, budesonide, carvedilol, pantoprazole, p.r.n. analgesics, antiemetics, received some clindamycin as well. PAST MEDICAL HISTORY: Includes above noted O2 requiring COPD, history of hypertension, history of prostate cancer with prostatectomy, underlying kidney disease, recent left humeral fracture. SOCIAL HISTORY: Former smoker. No ethanol, no illicit drug use. FAMILY HISTORY: Noncontributory. REVIEW OF SYSTEMS: Otherwise unremarkable except as noted above in the history of present illness. PHYSICAL EXAMINATION: [place] [address] CONSULTATION Name: SHAUNA HIGGINBOTHAM Room: [address]#: [id number] Admission: 11/07/19 Attend Phys: Asaf Sung Discharge: Date of : 41 Report #: [id number] GENERAL: He is alert, cooperative, appears chronically ill, undernourished, onqw-jn-kkshxlhi distress. He is protecting his left upper extremity. VITAL SIGNS: Temperature 98.2, pulse 83, respirations 18, blood pressure 153/46. SKIN: Warm, dry. HEENT: Normocephalic. Extraocular muscles intact. NECK: Supple. LUNGS: Scattered coarse breath sounds, diminished. HEART: Regular. I do not appreciate a murmur. ABDOMEN: Soft, nontender. EXTREMITIES: Left upper extremity has a full length compression dressing on it. Clearly, he has had some decrease in the swelling in particular over the distal dorsal hand. GENITOURINARY: Deferred. RECTAL: Deferred. LABORATORY DATA: Blood cultures sterile thus far. Urinalysis was otherwise remarkable for 6-15 white cells, greater than 30 bacteria. White count 8.3, H and H 12.9 and 40.0, platelets of 220, 1200 eosinophils may be suggestive of a drug-induced hypersensitivity. Electrolytes: Sodium 141, potassium 3.5, chloride 102, bicarbonate is 32, anion gap of 7, BUN and creatinine 28 and 1.3, glucose of 103. LFTs unremarkable. Albumin 3.1, total protein 6.6. Estimated GFR 54. Lactic acid 1.5 and Doppler of the upper extremity showed no evidence of DVT. Chest x-ray showed scarring right lung base without definite acute process. Blood cultures sterile thus far. ASSESSMENT: Left upper extremity inflammatory eruption, known fracture of the humerus, treated conservatively, appears to have a secondary bacterial infection, likely staph or strep. Continue the vancomycin, apparently he has a reaction to the quinolone. We will discontinue that. May need some gram-negative coverage. We will dose on a daily basis with gentamicin at least 2-3 days, awaiting the culture results and see how he does clinically. At this point, I think his lungs are certainly at risk for further infectious complications as well as other types of complications. Encourage incentive spirometry. <ELECTRONICALLY SIGNED> By: Esdras Epps MD 11/09/19 0730 1335 [id number] Epps MD /nt
[2019-11-09 07:35] VITALS: BP 136/61
[2019-11-09 16:27] VITALS: BP 147/73
[2019-11-09 20:00] VITALS: BP 140/80
[2019-11-10 04:07] LABS: HEMOGLOBIN 11.2 gm/dL (14.0-18.0); MCH 29.9 pg (26.0-34.0); MCHC 32.9 g/dL (28.0-37.0); MCV 90.7 fL (80.0-100.0); MPV 9.4 fl. (7.2-11.1); RBC 3.75 mil/uL (4.50-6.00); RDW-CV 14.7 % (10.5-14.5); WBC 8.2 thou/uL (4.0-11.0)
[2019-11-10 04:23] LABS: CALCIUM 8.3 mg/dL (8.5-10.1); CREATININE 1.1 mg/dL (0.6-1.3); POTASSIUM 3.7 mmol/L (3.5-5.1)
[2019-11-10 08:00] VITALS: BP 141/72
[2019-11-10 20:07] VITALS: BP 176/84
[2019-11-11 08:00] VITALS: BP 155/85
[2019-11-11 19:47] VITALS: BP 148/81
[2019-11-12 08:15] VITALS: BP 124/73
[2019-11-12 15:25] LABS: URINE BILIRUBIN NEGATIVE (Negative); URINE BLOOD NEGATIVE (Negative); URINE CLARITY CLEAR; URINE COLOR YELLOW; URINE GLUCOSE-RANDOM NEGATIVE (Negative); URINE KETONES NEGATIVE (Negative); URINE LEUKOCYTES-REFLEX NEGATIVE (Negative); URINE NITRITE-REFLEX NEGATIVE (Negative); URINE PROTEIN NEGATIVE (Negative); URINE UROBILINOGEN 0.2 E.U./dl (0.2-1.0)
[2019-11-12 15:37] VITALS: BP 134/82
[2019-11-12 20:13] VITALS: BP 160/96
[2019-11-13] MEDS ORDERED: BACTRIM DS TAB1 EACH PO (07:50)
[2019-11-13 09:00] VITALS: BP 124/68
[2019-11-13 10:33] VITALS: BP 124/68
[2019-11-13 11:45] VITALS: BP 124/68
[2019-11-13 13:11] VITALS: BP 124/68
[2019-11-13 13:12] VITALS: BP 124/68
== END 2019-11-13 14:30 | disposition home health service (06) | DRG 603 ==
LOC: M.ERS 13:34 → M.ORTHSURG 17:18 → M.TBA-ER 17:18 → M.ORTHSURG 18:12
PROVIDERS: Internal Medicine; Physician Assistant; Specialist; ADMIT Internal Medicine
DX: L03.114 Cellulitis of left upper limb (principal); S42.202A Unspecified fracture of upper end of left humerus, initial encounter for closed fracture; J96.10 Chronic respiratory failure, unspecified whether with hypoxia or hypercapnia; N39.0 Urinary tract infection, site not specified; N18.3 Chronic kidney disease, stage 3 (moderate); B96.20 Unspecified Escherichia coli [E. coli] as the cause of diseases classified elsewhere; I12.9 Hypertensive chronic kidney disease with stage 1 through stage 4 chronic kidney disease, or unspecified chronic kidney disease; J44.9 Chronic obstructive pulmonary disease, unspecified; Z90.79 Acquired absence of other genital organ(s); Z98.42 Cataract extraction status, left eye; Z98.41 Cataract extraction status, right eye; Z79.899 Other long term (current) drug therapy; Z79.2 Long term (current) use of antibiotics; Z79.82 Long term (current) use of aspirin; Z79.891 Long term (current) use of opiate analgesic; Z99.81 Dependence on supplemental oxygen; Z88.1 Allergy status to other antibiotic agents; Z88.0 Allergy status to penicillin; Z88.8 Allergy status to other drugs, medicaments and biological substances; Z87.891 Personal history of nicotine dependence; X58.XXXA Exposure to other specified factors, initial encounter; Y93.89 Activity, other specified; Y92.89 Other specified places as the place of occurrence of the external cause; Y99.8 Other external cause status

== ENCOUNTER 2020-01-05 10:27 | Inpatient (IN) | payer MEDICARE, BC ==
[~2020-01-05] VITALS: Ht 172.7 cm; Wt 72.8 kg
[~2020-01-05 10:27] MED LIST changes: +BACTRIM DS TAB1 EACH PO
[2020-01-05 10:30] VITALS: BP 168/73
[2020-01-05] MEDS ORDERED: VITAMIN D (10:40)
[2020-01-05] MEDS ORDERED: VITAMIN C500 M2 PO (10:41)
[2020-01-05 11:05] LABS: ABSOLUTE BASOPHILS 0.1 thou/uL (0.0-0.2); ABSOLUTE EOSINOPHILS 0.1 thou/uL (0.0-0.7); ABSOLUTE LYMPHOCYTES 0.6 thou/uL (0.8-5.3); ABSOLUTE MONOCYTES 0.6 thou/uL (0.0-1.2); ABSOLUTE NEUTROPHILS 8.6 thou/uL (1.6-8.1); BASOPHILS 0.6 %; EOSINOPHILS 0.7 %; HEMATOCRIT 42.1 % (42.0-52.0); LYMPHOCYTES 6.3 %; MCH 30.5 pg (26.0-34.0); MCHC 33.2 g/dL (28.0-37.0); MCV 91.9 fL (80.0-100.0); MONOCYTES 6.2 %; MPV 9.2 fl. (7.2-11.1); NUCLEATED RBCS 0 /100WBC; PLATELET COUNT* 200 thou/uL (150-400); POLYS 86.2 %; RBC 4.58 mil/uL (4.50-6.00); RDW-CV 15.2 % (10.5-14.5)
[2020-01-05 11:13] LABS: CALCIUM 8.9 mg/dL (8.5-10.1); CREATININE 1.1 mg/dL (0.6-1.3); POTASSIUM 4.6 mmol/L (3.5-5.1)
[2020-01-05] MEDS ORDERED: PREDNISONE 5 MG5 M1 PO (11:13)
[2020-01-05 11:14] LABS: APTT 24.4 Seconds (25.0-31.3)
[2020-01-05 11:23] LABS: ALBUMIN 3.6 g/dL (3.4-5.0); MAGNESIUM 1.9 mg/dL (1.8-2.4); TOTAL BILIRUBIN 0.5 mg/dL (<0.1-1.0); TOTAL PROTEIN 7.4 g/dL (6.4-8.2)
[2020-01-05 17:06] VITALS: BP 168/71
[2020-01-05 17:43] VITALS: BP 168/71
--- NOTE | 2020-01-05 17:43 | NUR ---
REPORT GIVEN TO DEXTER GIANG WHO IS TO ASSUME PT CARE INPATIENT NURSE.
[2020-01-05 18:00] VITALS: BP 154/84
[2020-01-05 20:00] VITALS: BP 123/69
[2020-01-06 00:26] VITALS: BP 129/66
[2020-01-06 04:24] VITALS: BP 159/72
[2020-01-06 04:41] LABS: HEMATOCRIT 36.7 % (42.0-52.0); HEMOGLOBIN 12.1 gm/dL (14.0-18.0); MCH 30.4 pg (26.0-34.0); MCV 92.1 fL (80.0-100.0); MPV 9.3 fl. (7.2-11.1); NUCLEATED RBCS 0 /100WBC; PLATELET COUNT* 169 thou/uL (150-400); RBC 3.99 mil/uL (4.50-6.00); RDW-CV 15.1 % (10.5-14.5); WBC 4.7 thou/uL (4.0-11.0)
[2020-01-06 05:24] LABS: CALCIUM 7.9 mg/dL (8.5-10.1); CREATININE 0.9 mg/dL (0.6-1.3); POTASSIUM 4.3 mmol/L (3.5-5.1)
[2020-01-06 07:25] LABS: ABSOLUTE NEUTROPHILS 4.6 thou/uL (1.6-8.1); PLATELET ESTIMATE ADEQUATE
--- NOTE | 2020-01-06 07:38 | NUR ---
PT A+O X4. PT WAS ANXIOUS @ BEDTIME. KLONOPIN EFFECTIVE. RT TX EFFECTIVE. PT WAS ABLE TO SLEEP THROUGH MOST OF NIGHT. CALL LIGHT IN REACH. HOURLY ROUNDING FOR SAFETY.
[2020-01-06 08:00] VITALS: BP 148/84; BP 194/96
[2020-01-06 12:00] VITALS: BP 138/78
[2020-01-06] MEDS ORDERED: ALENDRONATE SOD70 MG PO (13:59)
--- NOTE | 2020-01-06 14:47 | NUR ---
VSS, PATIENT VERY SOA ON EXERTION, A&OX4, NSR ON TELE, EXTERNAL CATHETER MAINTAINED BY PATIENT, LEG BAG, HOURLY ROUNDING PERFORMED, POSSESSIONS AND CALL LIGHT WITHIN REACH.
[2020-01-06 16:00] VITALS: BP 108/85
[2020-01-06 20:00] VITALS: BP 99/59
[2020-01-07] VITALS: BP 124/64
[2020-01-07 04:47] VITALS: BP 112/69
[2020-01-07 08:00] VITALS: BP 135/78
[2020-01-07 12:00] VITALS: BP 123/61
--- NOTE | 2020-01-07 12:00 | NUR ---
CM ASSESSMENT: VISITED WITH PT IN ROOM. PT LIVES AT HOME WITH . USES A WALKER. [facility] HH IS ACTIVE WITH [facility]. WILL CONTINUE TO FOLLOW AT SD
[2020-01-07] MEDS ORDERED: PREDNISONE 5 MG5 M1 PO (12:19)
[2020-01-07] MEDS ORDERED: DOXYCYCLINE 10100 M2 PO (12:22)
[2020-01-07] MEDS ORDERED: PROTONIX40 M1 PO (12:22)
--- NOTE | 2020-01-07 13:42 | NUR ---
FAXED DISCHARGE AND HH ORDERS TO MARIA INES AT
[2020-01-07 14:07] VITALS: BP 123/61
[2020-01-07 14:14] VITALS: BP 123/61
--- NOTE | 2020-01-07 15:52 | NUR ---
PT VSS, A&OX4, NSR ON TELE, NC@3L BASELINE, EXTERNAL CATHETER- PATIENT MAINTAINED WITH LEG BAG, HOURLY ROUNDING PERFORMED, POSSESSIONS AND CALL LIGHT WITHIN REACH. REC DISCHARGE ORDERS, REVIEWED WITH PATIENT AND SPOUSE, TELE MONITOR AND IV DISCONTINUED WITHOUT COMPLICATION. PATIENT TAKEN TO ER EXIT IN WHEELCHAIR BY NURSING STAFF, PICKED UP BY SPOUSE IN FAMILY CAR.
--- NOTE | 2020-01-09 13:56 | EKG ---
[place] [address] ELECTROCARDIOGRAM REPORT Name: SHAUNA HIGGINBOTHAM Room: [address] IN [facility]#: [id number] Admission: 01/05/20 Attend Phys: Jordan Aj, Discharge: 01/07/20 Date of : 41 Date of Service: 01/05/20 1034 Report #: [id number] THIS REPORT FOR: cc: Baldo Gan MD, Anthony MD Blick,Yann Hawkins MD [facility] ~ THIS REPORT FOR: //name// [facility] ED Test Date: 2020-01-05 Test Time: 10:34:13 Pat Name: SHAUNA HIGGINBOTHAM Department: Room: [facility] Gender: M Upholstery Cutter: : 1945 Requested By: Michel Gonzalez Order Number: [id number] MD: Yann Galindo Measurements Intervals [place] Rate: 129 P: 84 [place]: 147 QRS: 57 QRSD: 77 T: 81 QT: 310 QTc: 455 Interpretive Statements Sinus tachycardia artifact noted Atrial premature complexes in couplets Consider left ventricular hypertrophy Compared to ECG 11/07/2019 15:08:52 Atrial premature complex(es) now present Sinus rhythm no longer present Electronically Signed On 01-06-2020 10:59:42 WOOD PRESERVING PLANT LABORER by Yann Galindo [email or web address] <ELECTRONICALLY SIGNED> By: Yann Galindo MD, [facility] 01/06/20 1059 1034 1034 Yann Galindo MD, [facility] /EPI
== END 2020-01-07 15:19 | disposition home health service (06) | DRG 193 ==
LOC: M.ERS 10:27 → M.TBA-ER 12:06 → M.2W 12:06
PROVIDERS: Emergency Medicine Emergency Medical Services; ADMIT Internal Medicine
DX: J15.9 Unspecified bacterial pneumonia (principal); J96.20 Acute and chronic respiratory failure, unspecified whether with hypoxia or hypercapnia; E44.0 Moderate protein-calorie malnutrition; J44.1 Chronic obstructive pulmonary disease with (acute) exacerbation; J44.0 Chronic obstructive pulmonary disease with (acute) lower respiratory infection; Z96.1 Presence of intraocular lens; I12.9 Hypertensive chronic kidney disease with stage 1 through stage 4 chronic kidney disease, or unspecified chronic kidney disease; N18.3 Chronic kidney disease, stage 3 (moderate); R00.0 Tachycardia, unspecified; Z85.46 Personal history of malignant neoplasm of prostate; Z68.24 Body mass index [BMI] 24.0-24.9, adult; Z99.81 Dependence on supplemental oxygen; Z79.899 Other long term (current) drug therapy; Z79.82 Long term (current) use of aspirin; Z88.1 Allergy status to other antibiotic agents; Z88.0 Allergy status to penicillin; Z87.891 Personal history of nicotine dependence

== ENCOUNTER 2020-11-30 06:31 | Inpatient (IN) | payer MEDICARE, BC ==
[~2020-11-30] VITALS: Ht 172.7 cm; Wt 83.9 kg
[~2020-11-30 06:31] MED LIST changes: +ALENDRONATE SOD70 MG PO; +DOXYCYCLINE 10100 M2 PO; +PREDNISONE 5 MG5 M1 PO; +PROTONIX40 M1 PO; +VITAMIN C500 M2 PO; +VITAMIN D
[2020-11-30 06:34] VITALS: BP 156/80
[2020-11-30 07:14] LABS: HEMATOCRIT 40.4 % (42.0-52.0); MCH 29.3 pg (26.0-34.0); MCHC 32.3 g/dL (28.0-37.0); MCV 90.9 fL (80.0-100.0); NUCLEATED RBCS 0 /100WBC; PLATELET COUNT* 192 thou/uL (150-400); RBC 4.44 mil/uL (4.50-6.00); RDW-CV 14.6 % (10.5-14.5); WBC 15.6 thou/uL (4.0-11.0)
[2020-11-30 07:23] LABS: BE 2.7 mmol/L (-2 to +3); PCO2 43.9 mmHg (35.0-45.0); pH 7.417 (7.340-7.450)
[2020-11-30 07:25] LABS: PO2 351.5 mmHg (75.0-100.0)
[2020-11-30 07:30] LABS: CALCIUM 8.9 mg/dL (8.5-10.1); CREATININE 1.4 mg/dL (0.6-1.3)
[2020-11-30 07:37] LABS: PROTIME 10.8 Seconds (9.20-11.50)
[2020-11-30 07:41] LABS: TOTAL BILIRUBIN 0.8 mg/dL (<0.1-1.0); TOTAL PROTEIN 7.1 g/dL (6.4-8.2)
[2020-11-30 07:57] LABS: ABSOLUTE LYMPHOCYTES 0.6 thou/uL (0.8-5.3); ABSOLUTE MONOCYTES 0.3 thou/uL (0.0-1.2); ABSOLUTE NEUTROPHILS 14.7 thou/uL (1.6-8.1); PLATELET ESTIMATE ADEQUATE
[2020-11-30 08:11] LABS: INFLUENZA A ANTIGEN Negative (Negative); INFLUENZA B ANTIGEN Negative (Negative)
[2020-11-30 08:27] LABS: URINE BILIRUBIN NEGATIVE (Negative); URINE BLOOD NEGATIVE (Negative); URINE CLARITY CLOUDY; URINE COLOR YELLOW; URINE GLUCOSE-RANDOM NEGATIVE (Negative); URINE KETONES NEGATIVE (Negative); URINE LEUKOCYTES-REFLEX NEGATIVE (Negative); URINE NITRITE-REFLEX NEGATIVE (Negative); URINE PROTEIN TRACE (Negative); URINE SPECIFIC GRAVITY 1.025 (1.005-1.030); URINE UROBILINOGEN 0.2 E.U./dl (0.2-1.0)
[2020-11-30 08:32] LABS: AMORPHOUS URATES Moderate /LPF (None Seen); CASTS None Seen /LPF (None Seen); CRYSTALS None Seen /LPF (None Seen); MUCUS None Seen strn/LPF (None Seen); SQUAMOUS 0-3 Few /LPF (0-3); URINE RBC None Seen /HPF (0-2); URINE WBC-REFLEX 0-5 Rare /HPF (0-5)
[2020-11-30 10:57] VITALS: BP 119/55
--- NOTE | 2020-11-30 11:52 | EKG ---
[place] [address] ELECTROCARDIOGRAM REPORT Name: SHAUNA HIGGINBOTHAM Room: [address] ADM IN [facility]#: [id number] Admission: 11/30/20 Attend Phys: Charlotte Lowry MD Discharge: Date of : 41 Date of Service: 11/30/20 0639 Report #: [id number] THIS REPORT FOR: //name// [facility] ED Test Date: 2020-11-30 Test Time: 06:39:01 Pat Name: SHAUNA HIGGINBOTHAM Department: Room: [facility] Gender: M Mechanic: FARIBA : 1945 Requested By: Johanny Reddy Order Number: [id number] MD: Yann Galindo Measurements Intervals [place] Rate: 134 P: 77 RI: 144 QRS: 64 QRSD: 80 T: 48 QT: 283 QTc: 423 Interpretive Statements Sinus tachycardia Compared to ECG 01/05/2020 10:34:13 no change Electronically Signed On 11-30-2020 11:52:00 GAUGER CHIEF DELIVERY by Yann Galindo [email or web address] <ELECTRONICALLY SIGNED> By: Yann Galindo MD, [facility] 11/30/20 1152 0639 0639 Yann Galindo MD, [facility] /EPI
[2020-11-30 12:00] VITALS: BP 118/61
[2020-11-30 16:00] VITALS: BP 140/77
[2020-11-30 19:55] VITALS: BP 136/95
[2020-12-01 01:07] VITALS: BP 157/95
[2020-12-01 03:50] VITALS: BP 154/90
--- NOTE | 2020-12-01 04:05 | NUR ---
ASSUMED CARE OF PT AT 1900. PT IS ALERT AND ORIENTED. VSS. PERRLA. NO COMPLAINTS OF PAIN. PT IS ON 3 LITERS O2. PT IS IN SINUS RYTHM ON THE TELEMETRY. PT IS RESTING COMFORTABLY IN BED. RESPIRATIONS ARE EVEN AND NONLABORED. WILL CONTINUE TO MONITOR PT.
[2020-12-01 04:34] LABS: HEMATOCRIT 33.8 % (42.0-52.0); MCHC 32.2 g/dL (28.0-37.0); MCV 90.2 fL (80.0-100.0); MPV 9.5 fl. (7.2-11.1); RBC 3.75 mil/uL (4.50-6.00); RDW-CV 14.1 % (10.5-14.5); WBC 15.5 thou/uL (4.0-11.0)
[2020-12-01 04:43] LABS: CALCIUM 8.3 mg/dL (8.5-10.1); CREATININE 1.3 mg/dL (0.6-1.3); POTASSIUM 3.8 mmol/L (3.5-5.1)
[2020-12-01 04:57] LABS: HEMOGLOBIN 10.9 gm/dL (14.0-18.0)
[2020-12-01 08:00] VITALS: BP 171/80
--- NOTE | 2020-12-01 09:21 | NUR ---
CM SPOKE TO THE PT TO DISCUSS CM ASSESSMENT. PT A&O, AND INDEPENDENT WITH ADL'S. PT RESIDES AT HOME WITH SPOUSE. PT USES HOME O2 @ 3L AND HOME NEBULIZER TREATMENT PROVIDED BY [facility]. PT HAS PAST HX OF HH WITH [facility]. PT HAS 0 HX OF SNF. CM WILL REMAIN AVAILABLE TO ASSIST AND FOLLOW NEEDED.
[2020-12-01 12:00] VITALS: BP 122/66
[2020-12-01 16:00] VITALS: BP 173/75
[2020-12-01 20:00] VITALS: BP 156/71
[2020-12-02] VITALS: BP 143/67
[2020-12-02 04:30] LABS: ABSOLUTE LYMPHOCYTES 0.3 thou/uL (0.8-5.3); ABSOLUTE MONOCYTES 0.6 thou/uL (0.0-1.2); BASOPHILS 0.2 %; HEMATOCRIT 31.4 % (42.0-52.0); HEMOGLOBIN 10.3 gm/dL (14.0-18.0); LYMPHOCYTES 1.9 %; MCH 29.3 pg (26.0-34.0); MCHC 32.8 g/dL (28.0-37.0); MCV 89.1 fL (80.0-100.0); MONOCYTES 4.4 %; MPV 9.5 fl. (7.2-11.1); NUCLEATED RBCS 0 /100WBC; PLATELET COUNT* 184 thou/uL (150-400); POLYS 93.5 %; RBC 3.52 mil/uL (4.50-6.00); RDW-CV 14.2 % (10.5-14.5); WBC 13.9 thou/uL (4.0-11.0)
[2020-12-02 04:48] LABS: CALCIUM 9.8 mg/dL (8.5-10.1); CREATININE 1.3 mg/dL (0.6-1.3)
[2020-12-02 07:30] VITALS: BP 134/72
--- NOTE | 2020-12-02 07:46 | NUR ---
PATIENT SLEPT MOST OF THE NIGHT. IV REMAINS SALINE LOCKED. PATIENT REMAINS ON OXYGEN AT 3L PER NASAL CANNULA. CATHETER REMAINS IN PLACE TO LEG BAG. WILL CONTINUE TO MONITOR.
[2020-12-02 11:40] VITALS: BP 124/72
--- NOTE | 2020-12-02 14:02 | NUR ---
CM INFORMED DURING PRIME ROUNDING OF THE PLAN OF CARE FOR THE PT. PLAN FO RPT TO POSSIBLY D/C HOME TODAY. PT AT HOME OXYGEN BASELINE OF 3L VIA NC. PER PHYSICIAN PT WILL NEED TO INCREASE ACTIVITY TO DETERMINE ABILITY TO D/C HOME TODAY. CM WILL REMAIN AVAILABLE TO ASSIST AND FOLLOW FOR D/C PLANNING.
[2020-12-02 16:45] VITALS: BP 144/89
--- NOTE | 2020-12-02 18:34 | NUR ---
ASSUMED PT CARE AT 0730, PT AOX3-4, FORGETFUL, NO C/O PAIN OR SHORTNESS OF BREATH. PT WORKED W/ DR TODAY AND CLEARED FOR DC IF HE CAN AMBULATE. GOT PT UP AND HE WAS VERY WEAK ON FEET AND STATES HE IS HAVING PAIN IN HIS RT GROIN WHEN HE PUTS PRESSURE ON THAT LEG. DR NOTIFIED AND XRAY OF HIP/PELVIS ORDERED, SEE RESULTS. PT WORKED W/ PT AND GOT UP TO CHAIR THIS EVENING. PT GOAL IS TO INCREASE ACTIVITY AND KEEP SATS ABOVE 90%. MEDS PER MAR, HOURLY ROUNDING OBSERVED, FALL PRECAUTIONS IN PLACE, CALL LIGHT W/IN REACH.
[2020-12-02 20:00] VITALS: BP 152/67
[2020-12-03] VITALS: BP 148/66
[2020-12-03 04:42] VITALS: BP 144/64
[2020-12-03 04:46] LABS: HEMATOCRIT 34.3 % (42.0-52.0); HEMOGLOBIN 11.2 gm/dL (14.0-18.0); MCH 29.1 pg (26.0-34.0); MCHC 32.6 g/dL (28.0-37.0); MCV 89.4 fL (80.0-100.0); MPV 9.4 fl. (7.2-11.1); RBC 3.84 mil/uL (4.50-6.00); RDW-CV 14.2 % (10.5-14.5); WBC 12.3 thou/uL (4.0-11.0)
[2020-12-03 04:55] LABS: CALCIUM 8.3 mg/dL (8.5-10.1); CREATININE 1.2 mg/dL (0.6-1.3); POTASSIUM 4.1 mmol/L (3.5-5.1)
--- NOTE | 2020-12-03 06:52 | NUR ---
PATIENT SLEPT WELL DURING THIS SHIFT. PT ABLE TO REPOSITION HIMSELF IN BED. PT ON O2 @ 3 LITERS PER NASAL CANNULA. PT WITH CLOUDY YELLOW URINE IN LEG BAG. PT HAS CONDOM CATHETER. PT WITH SMALL TEAR ON PENIS FROM CONDOM BEING STUCK WHEN ATTEMPTING TO CHANGE. PT OPT WITH SALINE LOCK IN LT AC AND AND LT FOREARM; PATENT. PT SR WITH OCCASSIONAL PVC'S ON MONITOR. PT DENIES NEEDS AT THIS TIME. FREQUENTLY USED ITEMS AND CALL LIGHT WITHIN REACH. SIDERAILS UPX2 AND BED ALARM ON. WILL CONTINUE TO MONITOR.
[2020-12-03 08:00] VITALS: BP 137/65
[2020-12-03] MEDS ORDERED: LEVOFLOXACIN750 MG PO (09:49)
--- NOTE | 2020-12-03 11:17 | NUR ---
CM INFORMED DURING PRIME ROUNDING OF THE PLAN OF CARE FOR THE PT. PLAN FOR PT TO D/C HOME TODAY WITH SELF-CARE. NO CM D/C PLANNING NEEDS. CM WILL REMAIN AVAILALE TO ASSIST AND FOLLOW NEEDED.
[2020-12-03 11:28] VITALS: BP 137/65
[2020-12-03 12:30] VITALS: BP 147/79
--- NOTE | 2020-12-03 14:26 | NUR ---
ASSUMED PT CARE AT 0730, PT AOX4 BUT FORGETFUL. PT WORKED W/ PT AND OT TODAY AND AMBULATED HALLS, GOT UP TO CHAIR FOR LUNCH. DC ORDERS RECEIVED AND DC INSTRUCTIONS, CARE NOTES, SCRIPTS AND F/U APPTS GIVEN TO PT. PT COMMUNICATES UNDERSTANDING OF DC TEACHING. PT DC'D BY W/ NURSING STAFF, ALL PAPERWORK AND PERSONAL BELONGINGS TO 'S PERSONAL VEHICLE AT APPROX 1420. IV AND CDL B DRIVER REMOVED.
== END 2020-12-03 14:23 | disposition home or self-care (01) | DRG 177 ==
LOC: M.ERS 06:31 → M.TBA-ER 09:32 → M.2W 09:32
PROVIDERS: Emergency Medicine; Emergency Medicine Emergency Medical Services; ADMIT Family Medicine; ATTEND Family Medicine
PROC: 5A09357 Assistance with Respiratory Ventilation, Less than 24 Consecutive Hours, Continuous Positive Airway Pressure (ICD-10-PCS; principal; 2020-11-30)
DX: J15.6 Pneumonia due to other Gram-negative bacteria (principal); J96.20 Acute and chronic respiratory failure, unspecified whether with hypoxia or hypercapnia; J44.1 Chronic obstructive pulmonary disease with (acute) exacerbation; J44.0 Chronic obstructive pulmonary disease with (acute) lower respiratory infection; Z88.8 Allergy status to other drugs, medicaments and biological substances; E88.09 Other disorders of plasma-protein metabolism, not elsewhere classified; N18.30 Chronic kidney disease, stage 3 unspecified; I12.9 Hypertensive chronic kidney disease with stage 1 through stage 4 chronic kidney disease, or unspecified chronic kidney disease; Z20.822 Contact with and (suspected) exposure to COVID-19; Z96.1 Presence of intraocular lens; Z85.46 Personal history of malignant neoplasm of prostate; Z79.82 Long term (current) use of aspirin; Z79.899 Other long term (current) drug therapy; Z88.1 Allergy status to other antibiotic agents; Z88.0 Allergy status to penicillin

== ENCOUNTER → 2021-01-01 | Outpatient (CLI) | payer MEDICARE, BC ==
[~2021-01-01] MED LIST changes: +ASPIRIN325 PO; +CARVEDILOL3.125 MG PO; +LEVOFLOXACIN500 MG PO; +LEVOFLOXACIN750 MG PO; +LOSARTAN POTASS50 MG PO; +PREDNISONE 10 M10 M1 PO; +PULMICORT1 MG/2 ML IH
== END ==
LOC: M.WC 07:40
PROVIDERS: ATTEND Family Medicine
DX: L89.312 Pressure ulcer of right buttock, stage 2 (principal); L89.322 Pressure ulcer of left buttock, stage 2; L89.892 Pressure ulcer of other site, stage 2; S31.20XA Unspecified open wound of penis, initial encounter; I50.9 Heart failure, unspecified; F32.9 Major depressive disorder, single episode, unspecified; Z79.82 Long term (current) use of aspirin; Z90.89 Acquired absence of other organs; Z87.01 Personal history of pneumonia (recurrent); Z98.49 Cataract extraction status, unspecified eye; Z87.891 Personal history of nicotine dependence; X58.XXXA Exposure to other specified factors, initial encounter; Y93.89 Activity, other specified; Y92.89 Other specified places as the place of occurrence of the external cause; Y99.8 Other external cause status

== ENCOUNTER 2021-01-13 09:59 | Emergency (ER) | payer MEDICARE, BC ==
[~2021-01-13] VITALS: Ht 172.7 cm; Wt 113.4 kg
[2021-01-13 10:34] LABS: HEMATOCRIT 35.3 % (42.0-52.0); MCH 28.4 pg (26.0-34.0); MCV 91.3 fL (80.0-100.0); MPV 9.6 fl. (7.2-11.1); NUCLEATED RBCS 0 /100WBC; PLATELET COUNT* 221 thou/uL (150-400); RBC 3.86 mil/uL (4.50-6.00); RDW-CV 14.8 % (10.5-14.5); WBC 7.8 thou/uL (4.0-11.0)
[2021-01-13 10:42] LABS: CALCIUM 8.6 mg/dL (8.5-10.1); CREATININE 1.3 mg/dL (0.6-1.3); POTASSIUM 4.6 mmol/L (3.5-5.1)
[2021-01-13 10:43] LABS: APTT 26.5 Seconds (25.0-31.3); PROTIME 11.1 Seconds (9.20-11.50)
[2021-01-13 10:51] LABS: ALBUMIN 2.5 g/dL (3.4-5.0); MAGNESIUM 2.1 mg/dL (1.8-2.4); TOTAL BILIRUBIN 0.2 mg/dL (<0.1-1.0); TOTAL PROTEIN 6.6 g/dL (6.4-8.2)
[2021-01-13 10:56] LABS: ABSOLUTE BASOPHILS 0.1 thou/uL (0.0-0.2); ABSOLUTE LYMPHOCYTES 1.5 thou/uL (0.8-5.3); ABSOLUTE MONOCYTES 0.3 thou/uL (0.0-1.2); ABSOLUTE NEUTROPHILS 4.9 thou/uL (1.6-8.1); ANISOCYTOSIS 1+; PLATELET ESTIMATE ADEQUATE; POIKILOCYTOSIS 1+
[2021-01-13] MEDS ORDERED: PREDNISONE 20 M20 M1 PO (11:54)
[2021-01-13 12:24] VITALS: BP 133/67
--- NOTE | 2021-01-13 16:20 | EKG ---
[place] [address] ELECTROCARDIOGRAM REPORT Name: SHAUNA HIGGINBOTHAM Annamaria Room: [facility]#: [id number] Admission: 01/13/21 Attend Phys: Discharge: 01/13/21 Date of : 41 Date of Service: 01/13/21 1008 Report #: [id number] THIS REPORT FOR: //name// [facility] ED Test Date: 2021-01-13 Test Time: 10:08:07 Pat Name: SHAUNA HIGGINBOTHAM Department: Room: Gender: Concrete Curer: [facility] : 1945 Requested By: Mateo Davidson Order Number: [id number] MD: Yann Galindo Measurements Intervals [place] Rate: 92 P: 156 [place]: 147 QRS: 78 QRSD: 160 T: 118 QT: 372 QTc: 461 Interpretive Statements Sinus rhythm Probable left atrial enlargement Nonspecific intraventricular conduction delay Abnormal T waves artifact noted Compared to ECG 12/19/2020 12:42:09 Sinus tachycardia no longer present T-wave abnormality still present Electronically Signed On 01-13-2021 16:20:30 DIET ASSISTANT by Yann Galindo [email or web address] <ELECTRONICALLY SIGNED> By: Yann Galindo MD, [facility] 01/13/21 1620 1008 1008 Yann Galindo MD, [facility] /EPI
== END 2021-01-13 12:25 | disposition home or self-care (01) ==
LOC: M.ERS 09:59
PROVIDERS: Family Medicine
DX: J44.1 Chronic obstructive pulmonary disease with (acute) exacerbation (principal); Z20.822 Contact with and (suspected) exposure to COVID-19; Z87.891 Personal history of nicotine dependence; Z88.1 Allergy status to other antibiotic agents; Z88.0 Allergy status to penicillin; Z88.8 Allergy status to other drugs, medicaments and biological substances; Z85.46 Personal history of malignant neoplasm of prostate; Z90.89 Acquired absence of other organs

== ENCOUNTER → 2021-01-30 | Outpatient (CLI) | payer MEDICARE, BC ==
[~2021-01-30] MED LIST changes: +PREDNISONE 20 M20 M1 PO
== END ==
LOC: M.WC 01-15 10:30
PROVIDERS: ATTEND Family Medicine
DX: L89.312 Pressure ulcer of right buttock, stage 2 (principal); L89.322 Pressure ulcer of left buttock, stage 2; S31.20XD Unspecified open wound of penis, subsequent encounter; I50.9 Heart failure, unspecified; Z87.01 Personal history of pneumonia (recurrent); Z87.891 Personal history of nicotine dependence; Z79.82 Long term (current) use of aspirin; Z79.899 Other long term (current) drug therapy; X58.XXXD Exposure to other specified factors, subsequent encounter

== ENCOUNTER 2021-10-26 17:48 | Emergency (ER) | payer MEDICARE, BC ==
[~2021-10-26] VITALS: Ht 167.6 cm; Wt 72.6 kg
[2021-10-26 18:14] LABS: ABSOLUTE BASOPHILS 0.1 thou/uL (0.0-0.2); ABSOLUTE EOSINOPHILS 0.7 thou/uL (0.0-0.7); ABSOLUTE LYMPHOCYTES 0.9 thou/uL (0.8-5.3); ABSOLUTE MONOCYTES 0.7 thou/uL (0.0-1.2); ABSOLUTE NEUTROPHILS 5.7 thou/uL (1.6-8.1); BASOPHILS 0.9 %; EOSINOPHILS 8.6 %; HEMATOCRIT 34.4 % (42.0-52.0); HEMOGLOBIN 10.7 gm/dL (14.0-18.0); LYMPHOCYTES 11.3 %; MCH 27.8 pg (26.0-34.0); MCV 89.5 fL (80.0-100.0); MONOCYTES 8.7 %; MPV 10.6 fl. (7.2-11.1); NUCLEATED RBCS 0 /100WBC; PLATELET COUNT* 167 thou/uL (150-400); POLYS 70.5 %; RBC 3.85 mil/uL (4.50-6.00); RDW-CV 16.1 % (10.5-14.5); WBC 8.1 thou/uL (4.0-11.0)
[2021-10-26 18:28] LABS: CALCIUM 8.8 mg/dL (8.5-10.1); CREATININE 3.3 mg/dL (0.6-1.3); POTASSIUM 3.4 mmol/L (3.5-5.1)
[2021-10-26 18:31] LABS: ALBUMIN 3.2 g/dL (3.4-5.0); TOTAL BILIRUBIN 0.3 mg/dL (<0.1-1.0); TOTAL PROTEIN 6.9 g/dL (6.4-8.2)
[2021-10-26 21:48] VITALS: BP 104/68
--- NOTE | 2021-10-27 09:54 | EKG ---
[place] [address] ELECTROCARDIOGRAM REPORT Name: SHAUNA HIGGINBOTHAM Room: [facility]#: [id number] Admission: 10/26/21 Attend Phys: Discharge: 10/26/21 Date of : 41 Date of Service: 10/26/211803 Report #: [id number] THIS REPORT FOR: //name// [facility] ED Test Date: 2021-10-26 Test Time: 18:04:49 Pat Name: SHAUNA HIGGINBOTHAM Department: Room: Gender: Lehr Tender: : 1945 Requested By: Rod Samson Order Number: [id number] MD: Ten Barron Measurements Intervals [place] Rate: 85 P: 69 [place]: 146 QRS: 66 QRSD: 84 T: 73 QT: 359 QTc: 427 Interpretive Statements Sinus rhythm Probable left atrial enlargement Anteroseptal infarct, age indeterminate possible Compared to ECG 01/13/2021 10:08:07 Myocardial infarct finding now present Intraventricular conduction delay no longer present T-wave abnormality no longer present Electronically Signed On 10-27-2021 9:53:56 FARM CREW LEADER by Ten Barron [email or web address] <ELECTRONICALLY SIGNED> By: Ten Barron MD, [facility]AC 10/27/21 0953 180 180 Ten Barron MD, FAC /EPI
== END 2021-10-26 21:48 | disposition home or self-care (01) ==
LOC: M.ERS 17:48
PROVIDERS: Emergency Medicine
DX: F41.9 Anxiety disorder, unspecified (principal); R06.00 Dyspnea, unspecified; I50.9 Heart failure, unspecified; Z90.89 Acquired absence of other organs; Z79.82 Long term (current) use of aspirin; Z79.899 Other long term (current) drug therapy; Z88.0 Allergy status to penicillin; Z88.8 Allergy status to other drugs, medicaments and biological substances; Z87.891 Personal history of nicotine dependence

== ENCOUNTER 2021-10-27 11:17 | Inpatient (IN) | payer MEDICARE, BC ==
[~2021-10-27] VITALS: Ht 167.6 cm; Wt 71.7 kg
--- NOTE | ~2021-10-27 | CON ---
[address] [address] CONSULTATION Name: SHAUNA HIGGINBOTHAM Room: [address] IN [facility]#: [id number] Admission: 10/27/21 Attend Phys: Zion Murphy Discharge: Date of : 41 Report #: [id number] THIS REPORT FOR: cc: Deven Us MD, Jeffrey A. MD Arakelov, Alexandr V. MD ~ DATE OF CONSULTATION: 10/28/2021 REQUESTING PHYSICIAN: Tariq Morse DO REASON FOR CONSULTATION: Acute kidney injury. HISTORY OF PRESENT ILLNESS: The patient is a very pleasant 75-year-old gentleman with medical history significant for hypertension, COPD, recurrent pneumonia and history of UTI who presents to the hospital by the recommendation of his primary care doctor, who told him his blood pressure was too low. His blood pressure was running in 80s and 90s. When he was seen in the Emergency Room, it was found blood pressure was 85/45, his creatinine was 2.9, so he is admitted with diagnosis of acute kidney injury and hypotension. PAST MEDICAL HISTORY: As mentioned earlier. SOCIAL HISTORY: Positive for tobaccoism. FAMILY HISTORY: Negative for renal problems. MEDICATIONS: Reviewed. From my standpoint, he was on losartan 50 mg a day and Coreg 6.25 mg 2 tablets twice a day. PHYSICAL EXAMINATION: GENERAL: No acute distress. VITAL SIGNS: Blood pressure 110/70, heart rate 90, afebrile. HEENT: Pupils are round. NECK: Supple. LUNGS: Clear. CARDIOVASCULAR: Regular rate. ABDOMEN: Soft. EXTREMITIES: Lower extremities: No edema. LABORATORY DATA: Lab report revealed creatinine initially was 2.9, now it is down to 2.1. Baseline creatinine is around 1.3. ASSESSMENT: 1. Acute kidney injury due to hypotension. 2. Chronic kidney disease stage 3. [place] [address] CONSULTATION Name: SHAUNA HIGGINBOTHAM Room: [address]#: [id number] Admission: 10/27/21 Attend Phys: Zion Murphy Discharge: Date of : 41 Report #: [id number] 3. History of hypertension. 4. Chronic obstructive pulmonary disease. PLAN: Stop losartan and continue gentle hydration. Follow labs. For the future, I would recommend to stay him off KWAME inhibitors or angiotensin receptor blockers. By: 1034 1115Alexhansa Burroughs MD /nt
--- NOTE | ~2021-10-27 | CON ---
[address] [address] CONSULTATION Name: ANAHYSHAUNA Annamaria Room: [address] IN .R.#: [id number] Admission: 10/27/21 Attend Phys: Zion Murphy Discharge: Date of : 41 Report #: [id number] THIS REPORT FOR: cc: Deven Us MD, Jeffrey A. MD Khosla, Parveen K. MD ~ DATE OF CONSULTATION: 10/28/2021 HISTORY OF PRESENT ILLNESS: This is a 75-year-old male patient who was evaluated by me for altered mental status. The patient does not believe anything is wrong with him. He thinks his memory is at his baseline. I tried to ask him to cooperate with the examination, he was pleasant, but he does not think anything is wrong with him. Apparently, he did have some memory disturbances, but he was admitted with hypernatremia. That is somewhat better, but he still hypernatremic. He also had some low blood pressure when it happened. When I ask him why did he come to the Emergency Room, he says he lives in a facility and he said the nurse became concerned because of the blood pressure and brought him here. REVIEW OF SYSTEMS: Pretty extensive. He has a problem with kidney problems. He has some altered mental status per records since yesterday. He has hypernatremia, dehydration, history of COPD. At one time, he has a UTI and humerus fracture, sepsis presently. Otherwise, 14-point review of system is mostly noncontributory. PAST MEDICAL HISTORY: Negative for stroke according to him. FAMILY HISTORY: Negative for early age stroke. SOCIAL HISTORY: He says he does not drink alcohol on a regular basis. PHYSICAL EXAMINATION: NEUROLOGIC: Indicates he is alert. He is responsive. He could tell me what month it is and he was able to tell me what hospital he is in. I do not know what his baseline is, so it is difficult to determine, but his cranial nerve and neuromuscular examination was mostly unremarkable. He was able to do fairly well with position sense. He sometimes looks like he has a clonus, but difficult to tell. I can tell but plantars are significant hyperreflexia. CARDIAC: Unremarkable. No respiratory difficulty was noticed. VITAL SIGNS: Blood pressure is still 104/37, earlier today it was 91 and 98, which is low for him. He has no edema, cyanosis or jaundice. LABORATORY DATA: He did have a CT scan of the head and a carotid Doppler, which was mostly unremarkable [place] for [place] [address] CONSULTATION Name: SHAUNA HIGGINBOTHAM Room: [address] IN [facility]#: [id number] Admission: 10/27/21 Attend Phys: Zion Murphy Discharge: Date of : 41 Report #: [id number] IMPRESSION: Pretty difficult to form in this patient because I do not know what the baseline is. I think we need to see how he does after his metabolic problems corrected and then further assessment can be made. We will check with him tomorrow and go from there. Thank you very much for this referral and we will also talk to hospitalist tomorrow. By: 52 boris Danielson MD /nt
[2021-10-27 11:20] VITALS: BP 117/43
[2021-10-27 11:59] LABS: ABSOLUTE EOSINOPHILS 0.7 thou/uL (0.0-0.7); ABSOLUTE MONOCYTES 0.7 thou/uL (0.0-1.2); ABSOLUTE NEUTROPHILS 4.9 thou/uL (1.6-8.1); BASOPHILS 0.6 %; EOSINOPHILS 9.9 %; HEMATOCRIT 33.2 % (42.0-52.0); HEMOGLOBIN 10.4 gm/dL (14.0-18.0); LYMPHOCYTES 13.5 %; MCH 27.9 pg (26.0-34.0); MCHC 31.4 g/dL (28.0-37.0); MCV 88.8 fL (80.0-100.0); MONOCYTES 9.8 %; MPV 10.1 fl. (7.2-11.1); NUCLEATED RBCS 0 /100WBC; PLATELET COUNT* 131 thou/uL (150-400); POLYS 66.2 %; RBC 3.74 mil/uL (4.50-6.00); RDW-CV 15.4 % (10.5-14.5); WBC 7.3 thou/uL (4.0-11.0)
[2021-10-27 12:24] LABS: ALBUMIN 3.1 g/dL (3.4-5.0); CALCIUM 9.1 mg/dL (8.5-10.1); CREATININE 2.9 mg/dL (0.6-1.3); POTASSIUM 3.9 mmol/L (3.5-5.1); TOTAL BILIRUBIN 0.4 mg/dL (<0.1-1.0); TOTAL PROTEIN 6.7 g/dL (6.4-8.2)
[2021-10-27 17:30] VITALS: BP 104/44
[2021-10-27 19:43] LABS: CALCIUM 8.2 mg/dL (8.5-10.1); CREATININE 2.5 mg/dL (0.6-1.3)
[2021-10-27 20:37] VITALS: BP 112/52
[2021-10-27 21:23] VITALS: BP 120/49
[2021-10-28] VITALS (8 sets, daily range): BP systolic 85–150; BP diastolic 37–68
[2021-10-28 04:20] LABS: HEMATOCRIT 29.6 % (42.0-52.0); HEMOGLOBIN 9.4 gm/dL (14.0-18.0); MCH 28.2 pg (26.0-34.0); MCHC 31.8 g/dL (28.0-37.0); MCV 88.5 fL (80.0-100.0); MPV 10.9 fl. (7.2-11.1); NUCLEATED RBCS 0 /100WBC; PLATELET COUNT* 126 thou/uL (150-400); RBC 3.34 mil/uL (4.50-6.00); RDW-CV 15.2 % (10.5-14.5); WBC 5.5 thou/uL (4.0-11.0)
[2021-10-28 04:23] LABS: CALCIUM 8.4 mg/dL (8.5-10.1); CREATININE 2.1 mg/dL (0.6-1.3); POTASSIUM 3.5 mmol/L (3.5-5.1)
[2021-10-28 06:30] LABS: ABSOLUTE EOSINOPHILS 0.7 thou/uL (0.0-0.7); ABSOLUTE LYMPHOCYTES 0.6 thou/uL (0.8-5.3); ABSOLUTE MONOCYTES 0.3 thou/uL (0.0-1.2)
[2021-10-28 06:31] LABS: PLATELET ESTIMATE ADEQUATE
--- NOTE | 2021-10-28 14:14 | EKG ---
[place] [address] ELECTROCARDIOGRAM REPORT Name: ANAMIKASHAUNA MICHELE Room: [address] ADM IN [facility]#: [id number] Admission: 10/27/21 Attend Phys: Tariq Morse Discharge: Date of : 41 Date of Service: 10/27/21 1131 Report #: [id number] THIS REPORT FOR: //name// [facility] ED Test Date: 2021-10-27 Test Time: 11:31:55 Pat Name: SHAUNA HIGGINBOTAHM Department: Room: [facility] Gender: M Teacher Selection Specialist: UMAIR : 1945 Requested By: Michel Gonzalez Order Number: [id number] MD: Ten Barron Measurements Intervals [place] Rate: 77 P: 81 SD: 147 QRS: 72 QRSD: 89 T: 78 QT: 389 QTc: 441 Interpretive Statements Sinus rhythm Possible anteroseptal infarct, old Compared to ECG 10/26/2021 18:04:49 No significant changes Electronically Signed On 10-28-2021 14:13:57 ASSEMBLER EQUIPMENT by Ten Barron [email or web address] <ELECTRONICALLY SIGNED> By: Ten Barron MD, FAC 10/28/21 1413 1131 1131 Ten Barron MD, [facility] /EPI
--- NOTE | 2021-10-28 15:30 | 2DMMODE ---
[place] [address] 2 D/M-MODE ECHOCARDIOGRAM Name: SHAUNA HIGGINBOTHAM Room: [address] IN [facility]#: [id number] Admission: 10/27/21 Attend Phys: Tariq Morse Discharge: Date of : 41 Date of Service: 10/28/21 1530 Report #: [id number] THIS REPORT FOR: cc: Deven Us MD, Jeffrey A. MD Holkins, John M. MD [facility] ~ APPROVED REPORT Study performed: 10/28/2021 13:49:44 EXAM: Comprehensive 2D, Doppler, and color-flow Echocardiogram Patient Location: In-Patient Room #: 003 Status: routine BSA: 1.81 HR: 87 bpm BP: 89/64 mmHg Rhythm: NSR Other Information Study Quality: Good Indications RESP FAILURE 2D Dimensions IVSd: 9.08 (7-11mm) LVOT Diam: 20.64 (18-24mm) LVDd: 46.82 mm PWd: 8.71 (7-11mm) LVDs: 28.21 (25-40mm) Aortic Root: 34.58 mm Volumes Left Atrial Volume (Systole) LA ESV Index: 14.90 mL/m2 Aortic Valve AoV Peak Andi.: 1.14 m/s AO Peak Gr.: 5.24 mmHg LVOT Max P.65 mmHg AO Mean Gr.: 2.52 mmHg LVOT Mean P.07 mmHg LVOT Max V: 1.08 m/s AO V2 VTI: 18.80 cm LVOT Mean V: 0.65 m/s THOMAS (VTI): 3.03 cm2 LVOT V1 VTI: 17.04 [place] [address] 2 D/M-MODE ECHOCARDIOGRAM Name: SHAUNA HIGGINBOTHAM Room: [address] IN ..#: [id number] Admission: 10/27/21 Attend Phys: Tariq Morse Discharge: Date of : 41 Date of Service: 10/28/21 1530 Report #: [id number] Mitral Valve E/A Ratio: 0.69 MV Decel. Time: 232.16 ms MV E Max Andi.: 0.56 m/s MV PHT: 67.33 ms MVA (PHT): 3.27 cm2 TDI E/Lateral E': 4.31 E/Medial E': 7.00 Medial E' Andi.: 0.08 m/s Lateral E' Andi.: 0.13 m/s Pulmonary Valve PV Peak Andi.: 0.73 m/s PV Peak Gr.: 2.15 mmHg Tricuspid Valve RAP Estimate: 5.00 mmHg TR Peak Gr.: 31.06 mmHg RVSP: 36.00 mmHg PA Pressure: 36.00 mmHg Left Ventricle The left ventricle is normal size. There is normal LV segmental wall motion. There is normal left ventricular wall thickness. The left ventricular systolic function is normal. The left ventricular ejection fraction is within the normal range. LVEF is 55%. Grade I - abnormal relaxation pattern. Right Ventricle The right ventricle is normal size. The right ventricular systolic function is normal. Atria The left atrium size is normal. The right atrium size is normal. Aortic Valve Mild aortic valve sclerosis. Trace aortic regurgitation. There is no aortic valvular stenosis. Mitral Valve The mitral valve is normal in structure. There is no mitral valve regurgitation noted. No evidence of mitral valve stenosis. Tricuspid Valve The tricuspid valve is normal in structure. Mild tricuspid regurgitation. [place] [address] 2 D/M-MODE ECHOCARDIOGRAM Name: SHAUNA HIGGINBOTHAM Room: [address]#: [id number] Admission: 10/27/21 Attend Phys: Tariq Morse Discharge: Date of : 41 Date of Service: 10/28/21 1530 Report #: [id number] Pulmonic Valve The pulmonary valve is normal in structure. There is no pulmonic valvular regurgitation. Great Vessels The aortic root is normal in size. IVC is normal in size and collapses >50% with inspiration. Pericardium There is no pericardial effusion. <Conclusion> The left ventricle is normal size. There is normal left ventricular wall thickness. The left ventricular systolic function is normal. The left ventricular ejection fraction is within the normal range. LVEF is 55%. Grade I - abnormal relaxation pattern. The right ventricle is normal size. The left atrium size is normal. Mild aortic valve sclerosis. Trace aortic regurgitation. There is no aortic valvular stenosis. The mitral valve is normal in structure. The tricuspid valve is normal in structure. Mild tricuspid regurgitation. Mild pulmonary hypertension. IVC is normal in size and collapses >50% with inspiration. There is no pericardial effusion. There is normal LV segmental wall motion. <ELECTRONICALLY SIGNED> By: Ten Barron MD, FACC 10/28/211529 29 29 Ten Barron MD, FACC /INF
[2021-10-29] VITALS (7 sets, daily range): BP systolic 101–142; BP diastolic 44–62
[2021-10-29 05:00] LABS: CALCIUM 8.9 mg/dL (8.5-10.1); CREATININE 1.8 mg/dL (0.6-1.3); POTASSIUM 3.3 mmol/L (3.5-5.1)
[2021-10-30 01:45] VITALS: BP 101/43
[2021-10-30 06:27] VITALS: BP 102/56
[2021-10-30 08:00] VITALS: BP 90/52
[2021-10-30 08:28] LABS: ABSOLUTE EOSINOPHILS 0.6 thou/uL (0.0-0.7); ABSOLUTE MONOCYTES 0.6 thou/uL (0.0-1.2); ABSOLUTE NEUTROPHILS 2.7 thou/uL (1.6-8.1); BASOPHILS 0.7 %; EOSINOPHILS 11.6 %; HEMATOCRIT 26.5 % (42.0-52.0); HEMOGLOBIN 8.6 gm/dL (14.0-18.0); LYMPHOCYTES 20.4 %; MCH 28.6 pg (26.0-34.0); MCHC 32.3 g/dL (28.0-37.0); MCV 88.4 fL (80.0-100.0); MONOCYTES 11.5 %; MPV 11.1 fl. (7.2-11.1); NUCLEATED RBCS 0 /100WBC; PLATELET COUNT* 116 thou/uL (150-400); POLYS 55.8 %; RDW-CV 15.4 % (10.5-14.5); WBC 4.9 thou/uL (4.0-11.0)
[2021-10-30 09:06] LABS: ALBUMIN 2.3 g/dL (3.4-5.0); CALCIUM 8.8 mg/dL (8.5-10.1); CREATININE 1.6 mg/dL (0.6-1.3); POTASSIUM 3.2 mmol/L (3.5-5.1); TOTAL BILIRUBIN 0.3 mg/dL (<0.1-1.0); TOTAL PROTEIN 5.4 g/dL (6.4-8.2)
[2021-10-30 13:33] VITALS: BP 90/52
== END 2021-10-30 16:55 | disposition home health service (06) | DRG 640 ==
LOC: M.ERS 11:17 → M.TBA-ER 13:28 → M.2W 13:28
PROVIDERS: Emergency Medicine Emergency Medical Services; Internal Medicine; ADMIT Internal Medicine; ATTEND Internal Medicine
DX: E87.0 Hyperosmolality and hypernatremia (principal); N17.0 Acute kidney failure with tubular necrosis; G93.41 Metabolic encephalopathy; I13.0 Hypertensive heart and chronic kidney disease with heart failure and stage 1 through stage 4 chronic kidney disease, or unspecified chronic kidney disease; I50.9 Heart failure, unspecified; I95.9 Hypotension, unspecified; N18.30 Chronic kidney disease, stage 3 unspecified; J44.9 Chronic obstructive pulmonary disease, unspecified; D64.9 Anemia, unspecified; F41.9 Anxiety disorder, unspecified; E86.9 Volume depletion, unspecified; Z20.822 Contact with and (suspected) exposure to COVID-19; Z85.46 Personal history of malignant neoplasm of prostate; Z98.42 Cataract extraction status, left eye; Z98.41 Cataract extraction status, right eye; Z88.1 Allergy status to other antibiotic agents; Z88.0 Allergy status to penicillin; Z88.8 Allergy status to other drugs, medicaments and biological substances; Z87.891 Personal history of nicotine dependence; Z79.82 Long term (current) use of aspirin; Z79.899 Other long term (current) drug therapy